=== PATIENT | male | born 1955 | race Caucasian/White ===

== ENCOUNTER 2019-10-17 22:53 | Emergency (ER) | payer MEDICARE ==
[~2019-10-17] VITALS: Ht 182.9 cm; Wt 109.1 kg
[~2019-10-17 22:53] MED LIST: APRESOLINE 25MG25 MG PO; ASPIRIN 81M81 MG/TA2 PO; ASPIRIN E.C. 8181 MG PO; CATAPRES 0.1MG0.1 MG PO; COREG 25MG25 MG/TAB PO; COREG12.5 MG PO; ISORDIL 20MG20 M1 PO; K-TAB20 PO; LASIX 40MG TABL40 MG PO; LASIX 80MG TABL80 MG PO; LIPITOR 40MG TA40 MG PO; MEVACOR 20M20 MG/TAB; MEVACOR 20M20 MG/TAB PO; NORCO 325 MG-51 TAB PO; NORVASC 5MG5 MG/TAB PO; PLAVIX 75MG TAB75 MG PO; PRINIVIL10 MG PO; ROXICODONE 55 MG/TAB PO; ZESTRIL 5MG5 MG PO; ZOLOFT 100MG100 MG PO; ZOLOFT 50MG50 MG PO; [UNRECOGNIZED DRUG - REMARK]
[2019-10-17 23:09] VITALS: TEMP 98.2
[2019-10-17 23:35] LABS: ALBUMIN 3.8 gm/dL (3.5-5.0); BILIRUBIN,TOTAL 0.5 mg/dL (0.0-1.0); CALCIUM 8.5 mg/dL (8.4-10.2); CREATININE, serum 6.38 (0.66-1.25); TOTAL PROTEIN 7.1 gm/dL (6.4-8.2)
[2019-10-18 00:01] LABS: BASO % 0.5 % (0.0-2.0); EOS # 0.2 (0.0-0.7); EOS % 3.4 % (0-4.0); GRAN # 4.6 (1.4-6.5); GRAN % 80.9 % (42.2-75.2); LYMPH # 0.3 (1.2-3.4); LYMPH % 4.6 % (20.0-51.0); MEAN CELL VOLUME 78 fl (80.0-100.0); MEAN CORPUSCULAR HGB CONC 32 g/dl (33.0-37.0); MEAN PLATELET VOLUME 11.5 fl (7.4-10.4); MONO # 0.6 (0.1-0.6); MONO % 9.9 % (1.7-9.3); PLATELET COUNT 186 K/mm3 (130-400); RED BLOOD COUNT 3.16 M/mm3 (4.20-5.60); REDCELL DISTRIBUTION WIDTH-CV 20.1 % (11.5-14.5)
[2019-10-18 00:02] LABS: HEMATOCRIT 24.7 % (42.0-52.0); HEMOGLOBIN 7.9 g/dl (13.5-18.0); MEAN CORPUSCULAR HEMOGLOBIN 25 pg (27.0-31.0)
[2019-10-18 00:05] LABS: POTASSIUM 6.7 mmol/L (3.4-5.0)
[2019-10-18 00:06] LABS: TROPONIN-I 0.065 ng/mL (0.000-0.035)
[2019-10-18 00:12] LABS: INR 1.1 (0.8-3.0); PROTHROMBIN TIME 12.8 SECONDS (9.7-12.8)
[2019-10-18 01:35] VITALS: BP 155/69; PULSE 60
== END 2019-10-18 01:35 | disposition short-term general hospital (02) ==
LOC: COL.ER 22:53
PROVIDERS: Emergency Medicine
DX: I13.0 Hypertensive heart and chronic kidney disease with heart failure and stage 1 through stage 4 chronic kidney disease, or unspecified chronic kidney disease (principal); I50.9 Heart failure, unspecified; N17.9 Acute kidney failure, unspecified; E87.5 Hyperkalemia; E78.5 Hyperlipidemia, unspecified; F17.210 Nicotine dependence, cigarettes, uncomplicated; Z95.9 Presence of cardiac and vascular implant and graft, unspecified; Z79.02 Long term (current) use of antithrombotics/antiplatelets; Z79.82 Long term (current) use of aspirin; N18.9 Chronic kidney disease, unspecified
CPT/HCPCS: J0610; J1815; J1940

== ENCOUNTER 2019-11-01 21:13 | Inpatient (IN) | payer MEDICARE ==
[~2019-11-01] VITALS: Ht 190.5 cm; Wt 72.0 kg
[2019-11-01 21:45] LABS: ARTERIAL BLD GAS O2 SATURATION 95.1 % (92-100); ARTERIAL BLD GAS TCO2 CT 29.3; ARTERIAL BLOOD GAS BASE EXCESS 4.2 (-2-2); ARTERIAL BLOOD GAS HCO3 28.1 meq/L (22-26); ARTERIAL BLOOD GAS PCO2 39.2 mmHg (35-45); ARTERIAL BLOOD GAS PO2 76.9 mmHg (80-100); ARTERIAL BLOOD GAS pH 7.47 (7.35-7.45)
[2019-11-01 21:55] LABS: BASO % 0.5 % (0.0-2.0); EOS # 0.3 (0.0-0.7); EOS % 3.7 % (0-4.0); GRAN % 81.4 % (42.2-75.2); LYMPH # 0.4 (1.2-3.4); LYMPH % 5.3 % (20.0-51.0); MEAN CELL VOLUME 77 fl (80.0-100.0); MEAN CORPUSCULAR HGB CONC 33 g/dl (33.0-37.0); MEAN PLATELET VOLUME 10.8 fl (7.4-10.4); MONO # 0.6 (0.1-0.6); MONO % 8.7 % (1.7-9.3); PLATELET COUNT 280 K/mm3 (130-400); RED BLOOD COUNT 2.88 M/mm3 (4.20-5.60); REDCELL DISTRIBUTION WIDTH-CV 22.3 % (11.5-14.5)
[2019-11-01 21:56] LABS: HEMOGLOBIN 7.3 g/dl (13.5-18.0); MEAN CORPUSCULAR HEMOGLOBIN 25 pg (27.0-31.0)
[2019-11-01 21:57] LABS: HEMATOCRIT 22.2 % (42.0-52.0)
[2019-11-01 22:00] LABS: INR 1.1 (0.8-3.0); PROTHROMBIN TIME 12.7 SECONDS (9.7-12.8)
[2019-11-01 22:03] LABS: PARTIAL THROMBOPLASTIN TIME 34.2 SECONDS (26.0-37.0)
[2019-11-01 22:05] LABS: ALBUMIN 3.7 gm/dL (3.5-5.0); BILIRUBIN,TOTAL 0.8 mg/dL (0.0-1.0); CALCIUM 8.5 mg/dL (8.4-10.2); CREATININE, serum 4.08 (0.66-1.25); POTASSIUM 3.7 mmol/L (3.4-5.0)
[2019-11-01 22:17] LABS: TROPONIN-I 0.112 ng/mL (0.000-0.035)
[2019-11-02] VITALS (12 sets, daily range): BP systolic 123–158; BP diastolic 85–100; PULSE 61–115; TEMP 97.6–98.7
[2019-11-02 02:07] LABS: PARTIAL THROMBOPLASTIN TIME 33.3 SECONDS (26.0-37.0)
--- NOTE | 2019-11-02 03:00 | NUR ---
PT ADMITTED TO 311 WITH DIAGNOSIS OF HYPOXIA. PT SOMEWHAT CONFUSED, POOR HISTORIAN. SEE 5 PAGE ASSESSMENT.
[2019-11-02] MEDS ORDERED: ALBUTEROL0.83 MG/ML IH (03:19)
[2019-11-02] MEDS ORDERED: CORRECTIVE LAXAT5 MG PO (03:20)
[2019-11-02] MEDS ORDERED: ANTACID500 M1 PO (03:21)
[2019-11-02] MEDS ORDERED: OS-CAL 500 + D1 TAB PO (03:22)
[2019-11-02] MEDS ORDERED: REFRESH TEARS 330 ML OU (03:24)
[2019-11-02] MEDS ORDERED: OMNICEF 300MG300 MG PO (03:25)
[2019-11-02] MEDS ORDERED: KLONOPIN WAFER0.5 MG PO (03:26)
[2019-11-02] MEDS ORDERED: FERRO-TIME325 MG PO (03:27)
[2019-11-02] MEDS ORDERED: FLAGYL500 MG PO (03:28)
[2019-11-02] MEDS ORDERED: NICODERM C21 MG/PATC TD (03:29)
[2019-11-02] MEDS ORDERED: PROTONIX 40MG T40 MG PO (03:30)
[2019-11-02] MEDS ORDERED: FLOMAX 0.40.4 MG/CAP PO (03:31)
[2019-11-02] MEDS ORDERED: LASIX 80MG TABL80 MG PO (03:36)
[2019-11-02] MEDS ORDERED: NORCO 325 MG-51 TAB PO (03:37)
[2019-11-02] MEDS ORDERED: LEVOXYL0.025 MG PO (03:38)
[2019-11-02 09:10] LABS: MEAN CELL VOLUME 79 fl (80.0-100.0); MEAN CORPUSCULAR HGB CONC 33 g/dl (33.0-37.0); MEAN PLATELET VOLUME 10.8 fl (7.4-10.4); PLATELET COUNT 269 K/mm3 (130-400); RED BLOOD COUNT 3.01 M/mm3 (4.20-5.60); REDCELL DISTRIBUTION WIDTH-CV 21.8 % (11.5-14.5)
[2019-11-02 09:17] LABS: CALCIUM 8.4 mg/dL (8.4-10.2); CREATININE, serum 3.92 (0.66-1.25); POTASSIUM 3.5 mmol/L (3.4-5.0)
[2019-11-02 09:18] LABS: HEMATOCRIT 23.8 % (42.0-52.0); HEMOGLOBIN 7.9 g/dl (13.5-18.0); MEAN CORPUSCULAR HEMOGLOBIN 26 pg (27.0-31.0)
[2019-11-02 09:29] LABS: BAND 7 % (0-10); BASOPHIL 1 % (0-2); EOSINOPHIL 3 % (0-4); LYMPHOCYTE 11 % (20.0-51.0); NEUTROPHILS 73 % (42.0-75.2); PLATELET ESTIMATE NORMAL (NORMAL); SCHISTOCYTES 2+
[2019-11-02 09:31] LABS: TROPONIN-I 0.32 ng/mL (0.000-0.035)
--- NOTE | 2019-11-02 09:38 | NUR ---
Assessment complete. Patient sitting up in bed, awake and disoriented at this time. Patient was only oriented to himself. Complains that he is hungry and would like food, I continue to remind him that he must wait to see the doctor before he can eat. Heparin drip is currently infusing, both IV sites are CD&I. No complaints of pain or discomfort. Weakness evidenet when patient stated he could not lean forward for my ascultation. Bed alarm is set, patient refused gown at this time. Call light is in reach. Will continue to monitor.
[2019-11-02 13:39] LABS: IRON,SERUM 66 ug/dL (35-150)
[2019-11-02 13:49] LABS: TOTAL IRON BINDING CAPACITY 248 ug/dL (261-462)
--- NOTE | 2019-11-02 15:56 | NUR ---
SW was informed by nurse to contact DPOA-HC to complete intake due to patient's cognition. DPOA- Sylvie [phone] contacted, this is also patient's sister. She stated she did not know that she was appointed the DPOA-HC and she thought it was the guardian. Sister states that she barely talks to her brother due to family conflict, but was appreciative to know the information about being the DPOA-HC. [facility] provided to contact guardian Jodi [phone] for information in regards to patient. SW call guardian, but could not reach. MOIZ will continue to follow.
--- NOTE | 2019-11-02 18:31 | NUR ---
Patient has done well today. Once he was able to eat he was happier. He is very forgetful and will often ask the same question multiple times. He is pleasant but continues to request to go home. Heparin drip continues to run at this time. IV sites are stable. No other needs. Call light is in reach. Bed alarm is set. PAtient is aware of the 24 urine collection but has yet to pee at this time. He is aware to call if her does.
[2019-11-02 18:59] LABS: COLLECTION METHOD CLEAN CATCH
[2019-11-02 19:06] LABS: PH 6 (5-8); SQUAMOUS EPITHELIAL None Seen /hpf; URINE APPEARANCE Clear; URINE BACTERIA None Seen /hpf; URINE BILIRUBIN Negative (NEGATIVE); URINE BLOOD 1+ (NEGATIVE); URINE COLOR Yellow; URINE GLUCOSE Negative (NEGATIVE); URINE KETONE Negative (NEGATIVE); URINE LEUKOCYTE ESTERASE Negative (NEGATIVE); URINE NITRATE Negative (NEGATIVE); URINE PROTEIN(semi-quant) 1+ (NEGATIVE); URINE RBC 0-2 /hpf; URINE UROBILINOGEN Negative (NEGATIVE)
--- NOTE | 2019-11-02 22:14 | NUR ---
Hep xa result was 0.19, increased heparin drip by 1.5 ml per protocol. drip is now running at 13.5 mL per hour. hep xa recheck ordered for 6 hours later.
[2019-11-03] VITALS (7 sets, daily range): BP systolic 117–158; BP diastolic 71–94; PULSE 84–105; TEMP 97.6–99.9
--- NOTE | 2019-11-03 00:20 | NUR ---
Pt reducated on purpose of nothing by mouth after midnight for V/Q scan tommorrow. pt educated on process of 24 hour urine collection and asked to call when he urinates.
--- NOTE | 2019-11-03 01:03 | NUR ---
Pt restless and unable to sleep. requested "a pill to help sleep". gave clonazepam prn per APR.
--- NOTE | 2019-11-03 01:57 | NUR ---
pt continues to be confused and forgetful. constantly reminding and educating pt on reason he cannot have anything to eat or drink. pt continues to be restless, will continue to monitor.
--- NOTE | 2019-11-03 02:28 | NUR ---
pt found standing at bedside with blood all over the floor and left forearm IV was out. pt stated he doesnt know what happened or where he was trying to go. restarted heparin drip in right wrist IV site. changed bed linens and cleaned blood from the floor, changed pt pants. this nurse told the patient to call if he needs to get up and to use the urinal if he needs to pee. Bed alarm is on, [facility]
[2019-11-03 04:20] LABS: BASO # 0.1 (0.0-0.2); BASO % 0.8 % (0.0-2.0); EOS # 0.3 (0.0-0.7); EOS % 4.4 % (0-4.0); GRAN # 4.8 (1.4-6.5); LYMPH # 0.7 (1.2-3.4); LYMPH % 10.9 % (20.0-51.0); MEAN CELL VOLUME 78 fl (80.0-100.0); MEAN CORPUSCULAR HGB CONC 33 g/dl (33.0-37.0); MEAN PLATELET VOLUME 10.5 fl (7.4-10.4); MONO # 0.8 (0.1-0.6); MONO % 11.4 % (1.7-9.3); PLATELET COUNT 285 K/mm3 (130-400); RED BLOOD COUNT 2.94 M/mm3 (4.20-5.60); REDCELL DISTRIBUTION WIDTH-CV 21.9 % (11.5-14.5)
[2019-11-03 04:25] LABS: HEMOGLOBIN 7.6 g/dl (13.5-18.0); MEAN CORPUSCULAR HEMOGLOBIN 26 pg (27.0-31.0)
[2019-11-03 04:33] LABS: CALCIUM 8.3 mg/dL (8.4-10.2); CREATININE, serum 4.12 (0.66-1.25); MAGNESIUM 1.8 mg/dL (1.6-2.3); POTASSIUM 3.4 mmol/L (3.4-5.0)
[2019-11-03 04:46] LABS: TROPONIN-I 0.424 ng/mL (0.000-0.035)
--- NOTE | 2019-11-03 06:08 | NUR ---
pt restless and awake throughout the night, continues to be confused and forgetful. continually educated pt on reason for nothing by mouth and 24 hour urine collection. this nurse told pt to call if he needs to get up. bed alarm is set, will continue to monitor.
--- NOTE | 2019-11-03 07:38 | NUR ---
pt returned to room from scan @ 0730. in bed, alarms on. call light within reach. wanting breakfast
--- NOTE | 2019-11-03 09:20 | NUR ---
Initial visit; Patient thanked Collective Bargaining Specialist for stopping though declined spiritual care.
--- NOTE | 2019-11-03 12:29 | NUR ---
Die Sinker Apprentice spoke with patient's DPOA, Jodi (ph#[phone]) who advised no one should be in contact with patient's sister, Sylvie as she and patient do not get along. Jodi reports she is DPOA and will email paperwork to SW. Jodi reports she has provided the paperwork to [facility] in the past and gave it to [facility] as patient was recently admitted there. Jodi states she is patient's care provider and that she provides care "pro ernie". Patient lives in [place] at [address] [place] [address] Manjarrez for primary care. Jodi picks up patient's medications from [facility] and ensures he takes them as prescribed. Jodi reports patient was recently at [facility] in [place] for two weeks and had Home Health set up at discharge. Jodi cannot remember which agency, but will follow up with SW once she figures out the name. Jodi reports patient normally gets up and around okay and that she is over at patient's apartment everyday anywhere from 3 to 16 hours. Jodi states she strongly feels patient will need home oxygen set up at discharge. Jodi states at this time, plan is for patient to return home. SW will continue to follow.
--- NOTE | 2019-11-03 13:56 | NUR ---
CHF education due. CHF education not completed due to patient's lack of comprehension.
--- NOTE | 2019-11-03 16:05 | NUR ---
Hospice Community Liaison received a phone call from Marleen at [facility] who advised they received a referral from [facility] but couldn't see patient has he presented to [facility] ED shortly after discharge. MOIZ followed up with Jodi who advised she left the original DPOA documents at [facility]. MOIZ contacted MOIZ Wilson at [facility] who confirmed patient has DPOA designating Jodi and will fax over a copy. MOIZ will continue to follow.
--- NOTE | 2019-11-03 19:22 | NUR ---
END OF SHIFT NOTE: AGREE WITH STUDENT EVAL OF PT. AOX3 BUT FORGETFUL AND FREQUENTLY DISORIENTED AN DPLEASANTLY CONFUSED. REPEATEDLY ASKS THE SAME QUESTIONS AFTER HAVING THINGS EXPLAINED TO HIM. DENIES PAIN ALL SHIFT. LCTA. HRRR. NO EDEMA. SCABS TO PAUL SHINS AND BRUISING THROUGHOUT AND PT PICKS. 24 HR URINE COLLECTION CONTINUOUS UNTIL 2300. REPORT GIVEN TO ALEXANDREA/JYOTSNA. HEP Xa TWO CONSEQUTIVE THERAPEUTIC VALUE THUS NEXT LAB DRAW SCHEDULED FOR 0500. RFA/W IV INTACT WITH NO ISSUES THIS SHIFT. PT CONTINUOUSLY REMOVES TELE FROM BODY. ALSO OCCASIONALLY REMOVES NASAL CANULA. ON 1L. WAS 88-91% ON RA.
--- NOTE | 2019-11-03 20:00 | NUR ---
Bedside report received, assumed care for metalizing supervisor. Assessment complete. A&Ox3 but forgetful. Denies pain/nausea/shortness of breath. VS remain stable. Heparin to right forearm IV @13.5ml/hr. Next hepxa due at 0500. Currently on O2@1L/NC. Tolerating diet. Voiding without difficulty. Fluid restriction being enforced. Denies current needs. Call light in reach. Will monitor.
--- NOTE | 2019-11-03 23:50 | NUR ---
Called requesting something else for sleep. Hospitalist notified and new orders for melatonin 6mg-given at this time. Ambulated in hallways approx 200 feet with stand by assist. Denies pain/nausea/shortness of breath. Heparin continues to infuse at 13.5mls/hr. Call light in reach/bed alarm on. Will monitor.
[2019-11-04 02:27] LABS: CREATININE, serum 4.12 (0.66-1.25); URINE CREATININE CLEARANCE 7.5 mL/min (97-137); URINE TOTAL VOLUME 925 mL
[2019-11-04 04:30] VITALS: BP 122/75; PULSE 79; TEMP 98.9
[2019-11-04 07:00] LABS: BASO % 0.7 % (0.0-2.0); EOS # 0.3 (0.0-0.7); EOS % 5.6 % (0-4.0); GRAN # 3.8 (1.4-6.5); GRAN % 68.5 % (42.2-75.2); LYMPH # 0.6 (1.2-3.4); LYMPH % 10.2 % (20.0-51.0); MEAN CELL VOLUME 79 fl (80.0-100.0); MEAN CORPUSCULAR HGB CONC 33 g/dl (33.0-37.0); MEAN PLATELET VOLUME 11.1 fl (7.4-10.4); MONO # 0.8 (0.1-0.6); MONO % 14.5 % (1.7-9.3); PLATELET COUNT 300 K/mm3 (130-400); RED BLOOD COUNT 2.77 M/mm3 (4.20-5.60); REDCELL DISTRIBUTION WIDTH-CV 22.6 % (11.5-14.5)
[2019-11-04 07:11] LABS: HEMATOCRIT 21.9 % (42.0-52.0); HEMOGLOBIN 7.2 g/dl (13.5-18.0); MEAN CORPUSCULAR HEMOGLOBIN 26 pg (27.0-31.0)
[2019-11-04 07:13] LABS: CALCIUM 8.1 mg/dL (8.4-10.2); CREATININE, serum 4.05 (0.66-1.25); MAGNESIUM 1.9 mg/dL (1.6-2.3); POTASSIUM 3.3 mmol/L (3.4-5.0)
[2019-11-04 07:16] VITALS: BP 135/88; PULSE 68; TEMP 98.1
--- NOTE | 2019-11-04 09:23 | NUR ---
Pt assessment complete. Pt is laying in bed upon entry, he is A/O x4. His breathing is even and unlabored on RA. Pt denies SOB. No pain at this time. Reported nausea earlier this am, but has resolved with PRN Zofran. Pt ate breakfast without issues. Pt continues to have loose stools, pericare and bed bath given. Pt repositioned. No needs at this time. Call light within reach.
[2019-11-04 11:41] VITALS: BP 122/78; PULSE 76; TEMP 98.1
--- NOTE | 2019-11-04 13:30 | NUR ---
Rn Midwife received [facility]PO[facility] document [facility]. SW placed document on patient's chart. Patient's DPOA is Jodi Gilmore. MOIZ consulted Jasmine, Financial Counselor as Jodi reported she recently applied for Medicaid for patient and was not sure the status. Jasmine provided SW with releases of information for patient to sign. MOIZ met with patient and explained purpose of releases. Patient was unsure what today's date is. SW asked patient what year it is and he states he does not know. SW asked patient where he was right now and patient states "a hospital I think, I'm not sure". SW asked patient who the current president is and he replied "Obama". MOIZ provided this update to Jasmine, Financial Counselor and SW will follow up on these releases with patient at a later time. MOIZ contacted Marleen at [facility] and left a message. MOIZ also faxed clinical updates. MOIZ collaborated with ADRYAN Flowers who advised patient to start dialysis tomorrow per Dr. Garduno. MOIZ contacted patient's DPOA-Jodi to provide update. MOIZ will continue to follow.
[2019-11-04 16:35] VITALS: BP 105/65; PULSE 81; TEMP 97.5
[2019-11-04 19:26] VITALS: BP 126/84; PULSE 74; TEMP 98
--- NOTE | 2019-11-04 19:40 | NUR ---
Pt had uneventful day. Did continue to have some confusion, asking where he was. Pt did shower today, do not feel that patient understands the dialysis catheter placement nor dialysis despite the explanations. Did not report any pain. Had a good appetite, frequently asking for meals. No needs at this time. Call light within reach, bed alarm in place.
--- NOTE | 2019-11-04 20:30 | NUR ---
Assessment complete. Lungs clear. Heart sounds normal. Bowels active x4. Pulses present throughout. Bilateral lower extremity edema +1. INT right wrist flushed without complications. Patient care given Jodi voiced concerns regarding patient being off antidepressants. Zoloft added to med rec. Also reports patient having anxiety and would like klonopin given. Jodi reports EMS took only copies of V patient summary and Jodi would like to have copies released back to her. Jodi will be back in in AM. Will pass on to next shift. Spoke with patient and did agree regarding anxiety and wanting klonopin. Will provide to patient and will follow up with hospitalist later regarding zoloft. Patient denied other needs at this time. Call [facility] in reach.
[2019-11-04] MEDS ORDERED: ZOLOFT 100MG100 MG PO (23:03)
--- NOTE | 2019-11-04 23:15 | NUR ---
Jodi called regarding follow up on patient medications. Updated regarding zoloft restarted for tomorrow and klonopin given to patient earlier in evening. Would also like phone call in AM once patient goes for dialysis cath. Will pass on.
[2019-11-04 23:47] VITALS: BP 121/79; PULSE 73; TEMP 97.9
[2019-11-05] VITALS (18 sets, daily range): BP systolic 100–141; BP diastolic 63–92; PULSE 64–83; TEMP 97.4–98.4
--- NOTE | 2019-11-05 00:21 | NUR ---
Resting in bed. Denies needs. Call light in reach.
--- NOTE | 2019-11-05 05:27 | NUR ---
Patient had uneventful night. NPO since 0000. Denies needs this Am. Call light in reach.
--- NOTE | 2019-11-05 07:01 | NUR ---
Report given to JYOTSNA Ly
[2019-11-05 07:26] LABS: BASO % 0.8 % (0.0-2.0); EOS # 0.3 (0.0-0.7); EOS % 5.5 % (0-4.0); GRAN # 3.7 (1.4-6.5); GRAN % 70.3 % (42.2-75.2); LYMPH # 0.4 (1.2-3.4); LYMPH % 7.9 % (20.0-51.0); MEAN CELL VOLUME 79 fl (80.0-100.0); MEAN CORPUSCULAR HGB CONC 33 g/dl (33.0-37.0); MEAN PLATELET VOLUME 11.2 fl (7.4-10.4); MONO # 0.8 (0.1-0.6); MONO % 14.9 % (1.7-9.3); PLATELET COUNT 346 K/mm3 (130-400); RED BLOOD COUNT 2.87 M/mm3 (4.20-5.60); REDCELL DISTRIBUTION WIDTH-CV 23.5 % (11.5-14.5)
[2019-11-05 07:28] LABS: HEMATOCRIT 22.7 % (42.0-52.0); HEMOGLOBIN 7.4 g/dl (13.5-18.0); MEAN CORPUSCULAR HEMOGLOBIN 26 pg (27.0-31.0)
[2019-11-05 07:32] LABS: CALCIUM 8.1 mg/dL (8.4-10.2); CREATININE, serum 4.41 (0.66-1.25); POTASSIUM 3.5 mmol/L (3.4-5.0)
--- NOTE | 2019-11-05 08:22 | NUR ---
SEE SADIQ FOR ALL MEDICATION ADMINISTRATION TIMES AND INTRA AND POST SEDATION ASSESSMENT
--- NOTE | 2019-11-05 09:57 | NUR ---
Pt assessment complete. 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 Site to R chest CDI. Pt reporting back pain 08/28, no PRN's at this time. Pt eating breakfast without issues. No N/V. Fall precautions in place. Will continue to monitor.
--- NOTE | 2019-11-05 19:35 | NUR ---
First unit of blood started at this time. S/Sx's discussed with patient. Protocol procedure followed. This nurse will remain at bedside for first 15 minutes of transfusion.
--- NOTE | 2019-11-05 21:00 | NUR ---
Patient assessed at this time. Alert and oriented, with confusion and forgetfullness. Denies having pain and discomfort at this time. Peripheral IV to right forearm with blood running at this time. Site is without redness, warmth, swelling, and pain. HD catheter to right chest area. Dresings to area are CDI. Denies pain and discomfort to area. Denies having SOB and dyspnea. LS CTA. Respirations even and unlabored. HRR. Capillary refill less than 3 seconds. Non-tenting skin turgor. BSAx4. Abdomen soft and non-tender. No edema. Abraisions to bilateral shins, open to air. Given PRN Klonopin as requested. Voices no further questions, needs, or concerns at this time. Resting in bed with call light within reach.
[2019-11-05 22:11] LABS: HEPATITIS B SURFACE ANTIBODY <2.0 (()); HEPATITIS C VIRUS ANTIBODY Negative (Negative)
--- NOTE | 2019-11-05 22:30 | NUR ---
Patient's first unit of blood finshed at 2224. Given PRN APAP at this time for headache. Denies having any other questions, needs, or concerns at this time. Resting in bed with call light within reach.
[2019-11-05 23:05] LABS: HEPATITIS B SURFACE ANTIGEN Negative (Negative)
--- NOTE | 2019-11-05 23:30 | NUR ---
Patient's second unit of blood started at 2311. This nurse stayed with patient for the first 15 minutes per policy. Tolerating well.
[2019-11-06] VITALS (7 sets, daily range): BP systolic 109–139; BP diastolic 61–83; PULSE 69–78; TEMP 97.4–98.6
--- NOTE | 2019-11-06 01:44 | NUR ---
Patient completed 2nd unit of PRBCs at 0135. Tolerated well.
--- NOTE | 2019-11-06 05:06 | NUR ---
Patient has been awake most of this shift. Received 2 units of blood this shift per orders. Had received scheduled melatonin and PRN Klonopin. Patient needed reminders throughout the night regarding fluid restriction, and would get upset that staff was not giving more fluids. Continue to encourage compliance with fluid restriction. Had received PRN APAP for headache earlier this shift, denies pain at this time. Voices no questions, needs, or concerns at this time. Resting in bed with call light within reach.
--- NOTE | 2019-11-06 06:55 | NUR ---
appears to be sleeping, bedside shift report received from JYOTSNA Ackerman
[2019-11-06 07:02] LABS: BASO # 0.1 (0.0-0.2); BASO % 1.1 % (0.0-2.0); EOS # 0.3 (0.0-0.7); EOS % 5.2 % (0-4.0); GRAN # 3.9 (1.4-6.5); GRAN % 71.2 % (42.2-75.2); LYMPH # 0.5 (1.2-3.4); LYMPH % 8.3 % (20.0-51.0); MEAN CELL VOLUME 83 fl (80.0-100.0); MEAN CORPUSCULAR HGB CONC 32 g/dl (33.0-37.0); MEAN PLATELET VOLUME 10.8 fl (7.4-10.4); MONO # 0.7 (0.1-0.6); MONO % 13.5 % (1.7-9.3); PLATELET COUNT 362 K/mm3 (130-400); RED BLOOD COUNT 3.52 M/mm3 (4.20-5.60); REDCELL DISTRIBUTION WIDTH-CV 22.3 % (11.5-14.5)
[2019-11-06 07:08] LABS: HEMATOCRIT 29.1 % (42.0-52.0); HEMOGLOBIN 9.3 g/dl (13.5-18.0); MEAN CORPUSCULAR HEMOGLOBIN 26 pg (27.0-31.0)
[2019-11-06 07:19] LABS: ALBUMIN 3.7 gm/dL (3.5-5.0); CALCIUM 8.4 mg/dL (8.4-10.2); CREATININE, serum 4.1 (0.66-1.25); PHOSPHOROUS 5.2 mg/dL (2.5-4.5); POTASSIUM 3.8 mmol/L (3.4-5.0)
--- NOTE | 2019-11-06 08:30 | NUR ---
sitting up on side of bed eating breakfast, he is forgetful and needs to be reminded of his 1500ml fluid restriction, provided 120mkl milk per his request
--- NOTE | 2019-11-06 10:45 | NUR ---
ressting in bed, full assessment completed, see intervention for further info, has red abrasions to bilateral shins,
--- NOTE | 2019-11-06 11:39 | NUR ---
ambulating in mckeon with CONVEYOR TENDER [employer]CRET[employer]ING [employer]ANT
--- NOTE | 2019-11-06 12:24 | NUR ---
had lunch and tolerate wells, assisted into WC and to dialysis
--- NOTE | 2019-11-06 13:34 | NUR ---
Primary nurse was assisted with [id number] patient care by [facility] student Bailey Cedeno and [facility] [employer] instructor Mica Rhodes RN-.
--- NOTE | 2019-11-06 13:44 | NUR ---
remains in dialysis
--- NOTE | 2019-11-06 15:00 | NUR ---
returned from dialysis per WC, sitting on side of bed, denies needs
--- NOTE | 2019-11-06 16:17 | NUR ---
Agricultural Education Professor faxed clinical updates to [facility]. Patient has walked 400 ft with therapy. SW will continue to follow.
--- NOTE | 2019-11-06 17:45 | NUR ---
appears to be sleeping, awakened for meds and is cooperative,
--- NOTE | 2019-11-06 18:59 | NUR ---
bedside shift report given to JYOTSNA Ackerman
--- NOTE | 2019-11-06 19:45 | NUR ---
Patient assessed at this time. Alert and oriented to self only. Disoriented to time, place, and situation. Reminders given, but very forgetful. Denies having pain and discomfort at this time. Peripheral INT to right forearm flushed. Site is without redness, warmth, swelling, and pain. HD catheter to right chest. Dressing CDI. Patient to have fistula placed tomorrow. Reminded that he will be NPO after midnight. Will putt all fluids at that time from room. Denies SOB and dyspnea. LS CTA. Respirations even and unlabored. HRR. Capillary refill less than 3 seconds. Non-tenting skin turgor. BSAx4. Abdomen soft and non-tender. Abrasions to bilateral shins. Resting in bed with call light within reach. High fall risk precautions in place.
--- NOTE | 2019-11-06 22:00 | NUR ---
Patient keeps asking staff if he can go walk to his car. Reminded patient that he is at the hospital and he can not leave the floor. Upset with staff and keeps asking to leave. Confusion continues, patient does not understand why he is at the hospital and what surgery is planned for tomorrow. Staff gave patient some space. Patient sitting in bed with his clothes on. Bed alarm is on and staff intervene when getting up.
--- NOTE | 2019-11-06 23:39 | NUR ---
Resting in bed with eyes closed at this time. No longer yelling at staff to leave facility.
[2019-11-07 00:34] VITALS: BP 137/60; PULSE 72; TEMP 97.8
[2019-11-07 04:36] VITALS: BP 132/78; PULSE 69; TEMP 97.9
--- NOTE | 2019-11-07 05:10 | NUR ---
Patient has needed reminders multiple times during the night regarding being NPO after midnight for procedure today. Patient has gotten upset with staff and stated that he was going to leave, but stayed in room. Bed alarm is on, as patient is very quick and does try to wander into hallway.
[2019-11-07 07:39] LABS: BASO # 0.1 (0.0-0.2); EOS # 0.3 (0.0-0.7); EOS % 5.8 % (0-4.0); GRAN # 3.6 (1.4-6.5); GRAN % 69.5 % (42.2-75.2); LYMPH # 0.4 (1.2-3.4); LYMPH % 7.8 % (20.0-51.0); MEAN CELL VOLUME 83 fl (80.0-100.0); MEAN CORPUSCULAR HGB CONC 33 g/dl (33.0-37.0); MEAN PLATELET VOLUME 10.8 fl (7.4-10.4); MONO # 0.8 (0.1-0.6); MONO % 15.3 % (1.7-9.3); PLATELET COUNT 328 K/mm3 (130-400); RED BLOOD COUNT 3.41 M/mm3 (4.20-5.60); REDCELL DISTRIBUTION WIDTH-CV 22.5 % (11.5-14.5)
[2019-11-07 07:45] LABS: HEMATOCRIT 28.2 % (42.0-52.0); HEMOGLOBIN 9.2 g/dl (13.5-18.0); MEAN CORPUSCULAR HEMOGLOBIN 27 pg (27.0-31.0)
[2019-11-07 07:49] LABS: ALBUMIN 3.3 gm/dL (3.5-5.0); CALCIUM 8.3 mg/dL (8.4-10.2); CREATININE, serum 3.14 (0.66-1.25); PHOSPHOROUS 4.6 mg/dL (2.5-4.5)
[2019-11-07 08:28] VITALS: BP 129/76; PULSE 65; TEMP 97.8
--- NOTE | 2019-11-07 10:11 | NUR ---
Pt sleeping upon entry, no C/O pain at this time, shift assessments complete, left Pt call light in reach, bed in lowest position.
--- NOTE | 2019-11-07 13:48 | NUR ---
Primary nurse was assisted with [id number] patient care by [facility] student Bailey Cedeno and [facility] instructor Mica Rhodes RN-.
[2019-11-07 17:20] VITALS: BP 119/67; PULSE 73; TEMP 97.7
--- NOTE | 2019-11-07 19:05 | NUR ---
Pt resting in the room, returned from OR this afternoon after fistula placement, Pt remains oriented to self only, VS have remained stable fater returnin from the OR.
[2019-11-07 19:40] VITALS: BP 120/75; PULSE 71; TEMP 97.9
--- NOTE | 2019-11-07 20:00 | NUR ---
Received report from JYOTSNA Steen. Alert to self and place, unable to state current date and situation. Denies any pain or discomfort at this time. Scheduled meds given. Rt chest HD cath intact w/o complications. Fistula to LFA w/o complications with +bruit and thrill. INT to RFA intact, flushed, dressing CDI. No needs or concerns at this time. Call light within reach.
[2019-11-07 23:12] VITALS: BP 128/70; PULSE 72; TEMP 98.7
[2019-11-08 03:15] VITALS: BP 132/80; PULSE 64; TEMP 98
--- NOTE | 2019-11-08 05:59 | NUR ---
Pt requested snacks throughout the night. No complaints made. Meds administered. call light within reach.
--- NOTE | 2019-11-08 07:00 | NUR ---
Report received from JYOTSNA Gambino. Pt in bed sitting, has been up at door and in hallway this am. Denies needs, will continue to monitor.
--- NOTE | 2019-11-08 07:26 | NUR ---
report given to JYOTSNA Jeffrey.
[2019-11-08 08:37] LABS: BASO # 0.1 (0.0-0.2); BASO % 1.1 % (0.0-2.0); EOS # 0.3 (0.0-0.7); EOS % 5.5 % (0-4.0); GRAN # 4.5 (1.4-6.5); GRAN % 73.1 % (42.2-75.2); LYMPH # 0.4 (1.2-3.4); LYMPH % 6.8 % (20.0-51.0); MEAN CELL VOLUME 83 fl (80.0-100.0); MEAN CORPUSCULAR HGB CONC 33 g/dl (33.0-37.0); MEAN PLATELET VOLUME 11.1 fl (7.4-10.4); MONO # 0.8 (0.1-0.6); MONO % 13.2 % (1.7-9.3); PLATELET COUNT 378 K/mm3 (130-400); RED BLOOD COUNT 3.44 M/mm3 (4.20-5.60); REDCELL DISTRIBUTION WIDTH-CV 23.3 % (11.5-14.5)
[2019-11-08 08:42] LABS: HEMATOCRIT 28.7 % (42.0-52.0); HEMOGLOBIN 9.4 g/dl (13.5-18.0); MEAN CORPUSCULAR HEMOGLOBIN 27 pg (27.0-31.0)
--- NOTE | 2019-11-08 08:45 | NUR ---
PT WALKED APPROX 600 FT WITH PT. SPO2 96%
[2019-11-08 08:51] LABS: CALCIUM 8.3 mg/dL (8.4-10.2); CREATININE, serum 3.5 (0.66-1.25)
[2019-11-08 09:46] VITALS: BP 109/63; PULSE 66; TEMP 98.1
--- NOTE | 2019-11-08 10:00 | NUR ---
Pt resting in bed on side, sleepy this am, discussed plan for dialysis after lunch today. Pt agreeable to plan, wants to discharge this evening as it is his birthday, hospitalist notified and will discharge most likely, denies pain. Talked to [facility] Home health nurse Arley regarding pt plan of care. IV to RFA. LFA fistula is well approximated with no dressing in place, bruit and thrill present. HD catheter to RU. Shins have abrasions and scabs and R lower eyelid has scab on it. Pt has requested frequent food and drink, provided per request but trying to maintain fluid restriction. Will continue to monitor.
--- NOTE | 2019-11-08 10:15 | NUR ---
MOIZ update: MOIZ faxed updates for Home health to [phone]. Possible DC today, [facility] reports that they could admit client today, [facility]
[2019-11-08 11:45] VITALS: BP 114/65; PULSE 63; TEMP 98.1
[2019-11-08] MEDS ORDERED: NORVASC 10MG10 MG PO (12:58)
[2019-11-08] MEDS ORDERED: COREG 6.256.25 MG/TA PO (12:58)
--- NOTE | 2019-11-08 18:14 | NUR ---
Pt mona called, next of kin listed is Jodi, when calliing her she states that she needs to figure out some discharge options for him as he is partially evicted as of yesterday and she has nowhere for him to go. Called Leah hospitalsist and Dottie social media editor and per hospitalist will cancel the discharge and "tackle this tomorrow". Calling Jodi now and relaying this information.
--- NOTE | 2019-11-08 18:29 | NUR ---
PT updated with plan, he is saddened by it and states that he was really wanting to leave today. brought him a pepsi as a condolence for spending his birthday stuck in the hospital. Will give bedside shift report to nightshift nurse who will resume care.
[2019-11-08 19:38] VITALS: BP 136/92; PULSE 85; TEMP 98.7
--- NOTE | 2019-11-08 20:00 | NUR ---
Received report from JYOTSNA Jeffrey. Pt's next of kin, Jodi, currently visiting. Aware of plans of DC tmrw. [place] meds adminsitered with prn klonazepam and pain meds as requested by pt. c/o neck pain to stiches of HD cath site and fistual site to LFA, without redness or complications. Pt states pain with movement. INT to RFA intact, flushed. Pt occasionally confused and is unaware of place and situation, reoriented pt and cooperative. Snack provided as requested. Call light within reach.
[2019-11-08 23:58] VITALS: BP 114/67; PULSE 73; TEMP 98
[2019-11-09 03:47] VITALS: BP 126/77; PULSE 64; TEMP 98.3
--- NOTE | 2019-11-09 05:39 | NUR ---
Pt came to nurses station few times during the confused as to where he was and why he was here at the hospital. Reoriented pt to place and his situation. PT is pleasant, cooperative, and easily redirected. Snack provided as requested. Meds administered. Call light within reach.
--- NOTE | 2019-11-09 07:05 | NUR ---
Report given to JYOTSNA Baca.
[2019-11-09 07:15] VITALS: BP 129/86; PULSE 72; TEMP 97.5
--- NOTE | 2019-11-09 07:49 | NUR ---
BEDSIDE SHIFT REPORT RECEIVED. PT LYING IN BED. EASILY AROUSED. DOES NOT KNOW WHERE HE IS OR WHY HE IS HERE. PLEASANTLY CONFUSED.
--- NOTE | 2019-11-09 09:15 | NUR ---
MOIZ called DPOA Jodi jayden [phone] at 09:15 a.m. today. DPOA reports that she is picking up patient today. She denies that there is an issue with the home and using Home health care at the address listed [id number]. DPOA reports that she was going to pick client up last night but was unable to and told to wait until today. Educated DPOA of [facility] still coming out to support in home health care. MOIZ will make contact with [facility] to facilitatie services.
--- NOTE | 2019-11-09 09:51 | NUR ---
MORNING MEDS GIVEN. PT STEADY INDEPENDENT AMBULATION. REPORTS MILD GENERALIZED PAIN NOT REQUIRING MEDS AT THIS TIME. REPORTS CIGARETTE CRAVING. EDUCATED ON NICOTINE PATCH TO LT ARM. HOPING TO GO HOME TODAY, REPORTS NOT BEING AWARE OF HOME ISSUES HE OWNS HIS HOUSE. FORGETFUL. ORIENTED TO PERS/PLACE ONLY NOT TIME. FISTULA TO LT WRIST INTACT WITH THRILL AND BRUIT. 1_ PAUL LE EDEMA. IV TO RT WRIST FLUSHES. SCABS TO PAUL SHINS PEELING, NO DRIANAGE NOTED
[2019-11-09] MEDS ORDERED: TOPROL XL 50MG50 MG PO (09:59)
[2019-11-09 11:23] VITALS: BP 128/82; PULSE 64; TEMP 97.7
--- NOTE | 2019-11-09 13:16 | NUR ---
DISCHARGE PAPERWORK COMPLETE. AWAITING FOR FRANCO TO COME IN TO REVIEW INSTRUCTIONS TOGETHER PT IS VERY FORGETFUL. FRANCO CALLED MULTIPLE TIMES BUT LINE IS BUSY. WILL RE-ASESS
[2019-11-09] MEDS ORDERED: COREG 3.123.125 MG/T PO (15:08)
[2019-11-09] MEDS ORDERED: NORVASC 10MG10 MG PO (15:13)
--- NOTE | 2019-11-09 15:14 | NUR ---
DISCHARGE MED LIST REVIEWED WITH DR LAUREANO AND COMFIRMED FOR PT TO DC WITH INCREASED DOSE OF 10MG AMLODIPINE @ HS AND COREG 6.25 BID. SCRIPTS GIVEN TO PT AND FAMILY MEMBER. INSTRUCTIONS FOR DIALYSIS, FISTULA MATURATION AND CATHETER CARE ALSO REVIEWED. DR LAUREANO ALSO EDUCATED PT AND RENZO GAMEZ.
--- NOTE | 2019-11-09 16:26 | NUR ---
PT DISCHARGED ACCOMPANIED BY RENZO GAMEZ @ 1600. ALERT AND ORIENTED TO PERSON AND/OR PLACE. DSICHARGE MEDICATIONS REVIEWED WITH BOTH. AMBULATED THROUGH ER. RE-EDUCATED ON FISTULA SITE AND DIALYSIS CATH SITES. VERBALIZED UNDERSTANDING. FRANCO STATES PATIENT WILL RESIDE WITH HER AND HER BOYFRIEND FOR THE TIME BEING. FRANCO STATES SHE IS NOT RELATED TO PT BUT TAKES CARE OF HIS DAILY NEEDS. SHE STATES THE LAUNDERETTE ATTENDANT AT [facility] ISSUED HER A TRESSPASSING ORDER BECAUSE "SHE DOES NOT LIKE MY SKIN COLOR" THUS WILL NOT BE ABLE TO TAKE PT TO HIS PLACE FOR NOW. PT ACCEPTING TO LIVING AT [facility] FOR NOW.
== END 2019-11-09 16:00 | disposition home health service (06) | DRG 264 ==
LOC: COL.ER 21:13 → MEDICAL 23:32
PROVIDERS: Emergency Medicine; Internal Medicine Nephrology; Nurse Practitioner; Physician Assistant; Surgery; ADMIT Student in an Organized Health Care Education/Training Program
PROC: 031C0ZF Bypass Left Radial Artery to Lower Arm Vein, Open Approach (ICD-10-PCS; principal; 2019-11-07 12:30)
PROC: 5A1D70Z Performance of Urinary Filtration, Intermittent, Less than 6 Hours Per Day (ICD-10-PCS; 2019-11-08)
DX: I21.4 Non-ST elevation (NSTEMI) myocardial infarction (principal); I50.43 Acute on chronic combined systolic (congestive) and diastolic (congestive) heart failure; J69.0 Pneumonitis due to inhalation of food and vomit; N18.6 End stage renal disease; J96.21 Acute and chronic respiratory failure with hypoxia; I13.0 Hypertensive heart and chronic kidney disease with heart failure and stage 1 through stage 4 chronic kidney disease, or unspecified chronic kidney disease; E44.1 Mild protein-calorie malnutrition; E87.1 Hypo-osmolality and hyponatremia; I42.9 Cardiomyopathy, unspecified; I27.20 Pulmonary hypertension, unspecified; I73.9 Peripheral vascular disease, unspecified; D53.9 Nutritional anemia, unspecified; E87.6 Hypokalemia; R30.0 Dysuria; E03.9 Hypothyroidism, unspecified; E78.5 Hyperlipidemia, unspecified; F41.9 Anxiety disorder, unspecified; I25.118 Atherosclerotic heart disease of native coronary artery with other forms of angina pectoris; K21.9 Gastro-esophageal reflux disease without esophagitis; N40.0 Benign prostatic hyperplasia without lower urinary tract symptoms; D63.1 Anemia in chronic kidney disease; F17.210 Nicotine dependence, cigarettes, uncomplicated; Z91.14 Patient's other noncompliance with medication regimen; Z91.11 Patient's noncompliance with dietary regimen; Z68.21 Body mass index [BMI] 21.0-21.9, adult
CPT/HCPCS: OP; 99223-AI; 99231-AI; 99232-AI; 99233-AI; 99239; A9540; A9567; J0330; J1200; J1644; J1940; J2250; J2405; J2704; J2916; J3010; J7030; P9016; Q5105

== ENCOUNTER 2020-04-29 20:51 | Emergency (ER) | payer MEDICARE ==
[~2020-04-29] VITALS: Ht 185.4 cm; Wt 79.5 kg
[~2020-04-29 20:51] MED LIST changes: +ALBUTEROL0.83 MG/ML IH; +ANTACID500 M1 PO; +CALTRATE 600 +1 TAB PO; +COREG 3.123.125 MG/T PO; +COREG 6.256.25 MG/TA PO; +CORRECTIVE LAXAT5 MG PO; +FERRO-TIME325 MG PO; +FLAGYL500 MG PO; +FLOMAX 0.40.4 MG/CAP PO; +IPRATROPIUM BROM3 M1 IH; +KAPSPARGO SPRIN50 MG PO; +KLONOPIN WAFER0.5 MG PO; +LEVOXYL0.025 MG PO; +NICODERM C21 MG/PATC TD; +NORVASC 10MG10 MG PO; +OMNICEF 300MG300 MG PO; +OS-CAL 500 + D1 TAB PO; +PREDNISONE20 MG PO; +PROTONIX 40MG T40 MG PO; +REFRESH TEARS 330 ML OU; +TOPROL XL 50MG50 MG PO; +WELLBUTRIN SR100 M1 PO
[2020-04-29 21:02] VITALS: TEMP 98.2
[2020-04-29 21:59] LABS: BASO # 0.1 (0.0-0.2); BASO % 0.8 % (0.0-2.0); EOS # 0.3 (0.0-0.7); EOS % 4.4 % (0-4.0); GRAN # 5.1 (1.4-6.5); GRAN % 80.4 % (42.2-75.2); HEMOGLOBIN 10.1 g/dl (13.5-18.0); LYMPH # 0.3 (1.2-3.4); LYMPH % 4.3 % (20.0-51.0); MEAN CELL VOLUME 91 fl (80.0-100.0); MEAN CORPUSCULAR HEMOGLOBIN 30 pg (27.0-31.0); MEAN CORPUSCULAR HGB CONC 33 g/dl (33.0-37.0); MEAN PLATELET VOLUME 10.5 fl (7.4-10.4); MONO # 0.6 (0.1-0.6); MONO % 9.8 % (1.7-9.3); PLATELET COUNT 173 K/mm3 (130-400); REDCELL DISTRIBUTION WIDTH-CV 19.6 % (11.5-14.5)
[2020-04-29] MEDS ORDERED: APRESOLINE 25MG25 MG PO (21:59)
[2020-04-29] MEDS ORDERED: FEROSUL (22:03)
[2020-04-29] MEDS ORDERED: NORCO 325 MG-51 TAB PO (22:04)
[2020-04-29] MEDS ORDERED: KLONOPIN 1MG1 MG PO (22:04)
[2020-04-29 22:07] LABS: INR 1.2 (0.8-3.0); PROTHROMBIN TIME 13.9 SECONDS (9.7-12.8)
[2020-04-29 22:10] LABS: ALBUMIN 3.7 gm/dL (3.5-5.0); BILIRUBIN,TOTAL 0.7 mg/dL (0.0-1.0); CALCIUM 8.6 mg/dL (8.4-10.2); CREATININE, serum 2.55 (0.66-1.25); POTASSIUM 3.9 mmol/L (3.4-5.0)
[2020-04-29 22:23] LABS: TROPONIN-I 0.059 ng/mL (0.000-0.035)
[2020-04-30 03:15] VITALS: BP 126/88; PULSE 93
== END 2020-04-30 03:15 | disposition home or self-care (01) ==
LOC: COL.ER 20:51
PROVIDERS: Emergency Medicine
DX: J44.9 Chronic obstructive pulmonary disease, unspecified (principal); I13.2 Hypertensive heart and chronic kidney disease with heart failure and with stage 5 chronic kidney disease, or end stage renal disease; I25.10 Atherosclerotic heart disease of native coronary artery without angina pectoris; G93.40 Encephalopathy, unspecified; N18.6 End stage renal disease; F17.210 Nicotine dependence, cigarettes, uncomplicated; Z99.2 Dependence on renal dialysis; Z79.02 Long term (current) use of antithrombotics/antiplatelets; Z79.82 Long term (current) use of aspirin

== ENCOUNTER 2020-08-24 15:13 | Observation (INO) | payer MEDICARE, MEDICAID ==
[~2020-08-24] VITALS: Ht 190.5 cm; Wt 74.4 kg
[~2020-08-24 15:13] MED LIST changes: +FEROSUL; +KLONOPIN 1MG1 MG PO
[2020-08-24 15:47] LABS: BASO % 0.7 % (0.0-2.0); EOS # 0.2 (0.0-0.7); EOS % 2.6 % (0-4.0); GRAN # 5.1 (1.4-6.5); GRAN % 83.5 % (42.2-75.2); HEMOGLOBIN 10.2 g/dl (13.5-18.0); LYMPH # 0.3 (1.2-3.4); LYMPH % 5.6 % (20.0-51.0); MEAN CELL VOLUME 93 fl (80.0-100.0); MEAN CORPUSCULAR HEMOGLOBIN 30 pg (27.0-31.0); MEAN CORPUSCULAR HGB CONC 33 g/dl (33.0-37.0); MEAN PLATELET VOLUME 11.2 fl (7.4-10.4); MONO # 0.5 (0.1-0.6); MONO % 7.4 % (1.7-9.3); PLATELET COUNT 159 K/mm3 (130-400); RED BLOOD COUNT 3.35 M/mm3 (4.20-5.60); REDCELL DISTRIBUTION WIDTH-CV 17.2 % (11.5-14.5)
[2020-08-24 15:52] LABS: HEMATOCRIT 31.1 % (42.0-52.0)
[2020-08-24 15:56] LABS: INR 1.2 (0.8-3.0); PROTHROMBIN TIME 13.7 SECONDS (9.7-12.8)
[2020-08-24 15:59] LABS: ALBUMIN 3.8 gm/dL (3.5-5.0); BILIRUBIN,TOTAL 1.2 mg/dL (0.0-1.0); CALCIUM 8.9 mg/dL (8.4-10.2); CREATININE, serum 5.09 (0.66-1.25); POTASSIUM 3.8 mmol/L (3.4-5.0); TOTAL PROTEIN 7.1 gm/dL (6.4-8.2)
[2020-08-24 16:11] LABS: TROPONIN-I 0.093 ng/mL (0.000-0.035)
[2020-08-24 22:17] VITALS: BP 135/88; PULSE 80; TEMP 98.2
--- NOTE | 2020-08-24 23:35 | NUR ---
Pt came for confusion and seems a little confused. He was complaining about right knee pain but does not recall if he had fallen. Vss. will continue to monitor.
[2020-08-25 04:00] VITALS: BP 138/98; PULSE 86; TEMP 97.4
--- NOTE | 2020-08-25 06:45 | NUR ---
awake and resting in bed, bedside shift report received from JYOTSNA Hood
--- NOTE | 2020-08-25 07:00 | NUR ---
is alert and oriented to place and self, assisted him with ordering breakfast
[2020-08-25 07:43] VITALS: BP 149/69; PULSE 87; TEMP 97.7
[2020-08-25] MEDS ORDERED: ZOLOFT 100MG100 MG PO (07:43)
[2020-08-25] MEDS ORDERED: IPRATROPIUM BROM3 M1 IH (07:43)
--- NOTE | 2020-08-25 08:30 | NUR ---
up and ambulated to bathroom earlier with assistance of BOTTOM POLISHER, then had breakfast and tolerated well, transferred per WC to dialysis, DOMI Vega here and explained to her the guardian requesting to be called, verbalizes understanding
[2020-08-25 09:18] LABS: BASO # 0.1 (0.0-0.2); BASO % 0.8 % (0.0-2.0); EOS # 0.2 (0.0-0.7); EOS % 3.7 % (0-4.0); GRAN # 4.9 (1.4-6.5); HEMOGLOBIN 10.3 g/dl (13.5-18.0); LYMPH # 0.4 (1.2-3.4); LYMPH % 5.9 % (20.0-51.0); MEAN CELL VOLUME 95 fl (80.0-100.0); MEAN CORPUSCULAR HEMOGLOBIN 30 pg (27.0-31.0); MEAN CORPUSCULAR HGB CONC 32 g/dl (33.0-37.0); MEAN PLATELET VOLUME 11.5 fl (7.4-10.4); MONO # 0.4 (0.1-0.6); MONO % 7.3 % (1.7-9.3); PLATELET COUNT 156 K/mm3 (130-400); RED BLOOD COUNT 3.39 M/mm3 (4.20-5.60); REDCELL DISTRIBUTION WIDTH-CV 17.1 % (11.5-14.5)
[2020-08-25 09:23] LABS: HEMATOCRIT 32.1 % (42.0-52.0)
[2020-08-25 09:27] LABS: ALBUMIN 3.8 gm/dL (3.5-5.0); CALCIUM 8.5 mg/dL (8.4-10.2); CREATININE, serum 5.26 (0.66-1.25); PHOSPHOROUS 6.3 mg/dL (2.5-4.5); POTASSIUM 4.4 mmol/L (3.4-5.0)
--- NOTE | 2020-08-25 10:12 | NUR ---
physical therapy in to work with patient, ambulating out in mckeon and will go and see his who is also in the hospital
--- NOTE | 2020-08-25 10:26 | NUR ---
remains in dialysis, resting in dialysis chair and denies needs
--- NOTE | 2020-08-25 10:52 | NUR ---
remains in dialysis, full assessment completed, see interventions for further info, c/o some right knee and hip pain with movement, has 2cm scabbed area to right elbow, when asked him if he fell he just says he must have, is oriented to self and place but is forgetful and doesn't know why he is on dialysis, explained this to him
--- NOTE | 2020-08-25 10:59 | NUR ---
left message for Dr King regarding consult
--- NOTE | 2020-08-25 11:42 | NUR ---
Patient tolerated HD tx with 4L fluid removal. Next planned HD tx tomorrow, 08/26/20 @ 0800.
--- NOTE | 2020-08-25 12:10 | NUR ---
continues to c/o pain to right knee, medicated with tylenol 500mg, transferred into and returned to room from dialysis
[2020-08-25 12:22] VITALS: BP 151/93; PULSE 95; TEMP 97.8
--- NOTE | 2020-08-25 12:57 | NUR ---
assisted him with ordering lunch, occupational therapy in to work with patient,
--- NOTE | 2020-08-25 13:08 | NUR ---
spoke with Dr aGrduno and informed him Jodi, care provider would like for him to call here regarding patient
--- NOTE | 2020-08-25 13:39 | NUR ---
MOIZ contacted the patient's DPOA-HC, Jodi Gilmore (ph#[phone]), to discuss discharge plan. The patient lives alone in [place]. Jodi reports that the patient has some dementia and that she has cameras in the patient's home and that she monitors him /. She reports that the patient is independent with ADLs and that he has a walker. He has home health services from [facility] and Jodi reports that they help him bathe. SW contacted and confirmed services from [facility]. The patient's PCP is Dr. Ángel Manjarrez and he receives his medications from [facility]. The patient's DPOA-HC is in EMR and it designates Jodi. The patient is observation status. MOIZ informed Jodi of this and how that means the patient will likely be ready to d/c tomorrow, unless there is a change in his status. Jodi would like to pursue with the patient returning home with home health from [facility]. PT/OT have been ordered. SW to continue to follow. *Discharge plan: home with home health*
--- NOTE | 2020-08-25 14:30 | NUR ---
ambulated in [place] with physical therapy with use of walker, gait was steady at this time, continues to c/o of some right knee pain
[2020-08-25 16:29] VITALS: BP 150/89; PULSE 87; TEMP 98.4
--- NOTE | 2020-08-25 16:47 | NUR ---
resting in bed, supper ordered
--- NOTE | 2020-08-25 18:23 | NUR ---
had supper and now sitting up on side ofbed
--- NOTE | 2020-08-25 18:54 | NUR ---
bedside shift report given to JYOTSNA Rosado
[2020-08-25 19:45] VITALS: BP 134/81; PULSE 73; TEMP 98.3
[2020-08-26 00:52] VITALS: BP 134/76; PULSE 85; TEMP 98.4
[2020-08-26 04:47] VITALS: BP 134/84; PULSE 83; TEMP 98.1
--- NOTE | 2020-08-26 05:57 | NUR ---
Resting quietly, c/o pain to R knee- medicated with PRN norco, updated on plan of care, denies further needs, fall precautions in use, call aguilar w/i reach.
[2020-08-26 06:55] LABS: BASO % 0.8 % (0.0-2.0); EOS # 0.2 (0.0-0.7); EOS % 4.9 % (0-4.0); GRAN # 3.5 (1.4-6.5); GRAN % 73.9 % (42.2-75.2); LYMPH # 0.5 (1.2-3.4); LYMPH % 9.8 % (20.0-51.0); MEAN CELL VOLUME 97 fl (80.0-100.0); MEAN CORPUSCULAR HEMOGLOBIN 32 pg (27.0-31.0); MEAN CORPUSCULAR HGB CONC 33 g/dl (33.0-37.0); MEAN PLATELET VOLUME 11.7 fl (7.4-10.4); MONO # 0.5 (0.1-0.6); MONO % 10.4 % (1.7-9.3); PLATELET COUNT 144 K/mm3 (130-400); RED BLOOD COUNT 3.16 M/mm3 (4.20-5.60); REDCELL DISTRIBUTION WIDTH-CV 17.1 % (11.5-14.5)
[2020-08-26 06:57] LABS: HEMATOCRIT 30.7 % (42.0-52.0)
[2020-08-26 06:59] LABS: ALBUMIN 3.5 gm/dL (3.5-5.0); CALCIUM 8.6 mg/dL (8.4-10.2); CREATININE, serum 4.23 (0.66-1.25); PHOSPHOROUS 4.5 mg/dL (2.5-4.5); POTASSIUM 4.1 mmol/L (3.4-5.0)
[2020-08-26 07:47] VITALS: BP 122/76; PULSE 71; TEMP 98.1
[2020-08-26] MEDS ORDERED: NORCO 325 MG-51 TAB PO (11:15)
--- NOTE | 2020-08-26 11:33 | NUR ---
The patient is to discharge back home today, 08/26, with home health services for PT/OT/correction from [facility] . SW notified and faxed d/c orders to Maya at [facility]. No additional needs at this time.
--- NOTE | 2020-08-26 12:33 | NUR ---
Patient tolerated HD tx with 3L fluid removal today. Next planned HD tx Sunday[facility]28/20 @ [facility] [place].
--- NOTE | 2020-08-26 16:16 | NUR ---
Scheduled medications given. Shift assessment preformed. Dialysis preformed. 3L of fluid taken off. Patient tolerated well. PRN [place] given for pain in right knee rated a 6/10. Upon revaluation, patient states that his pain was relieved. Patient deemed fit for discharge. Going home on Home Health. IV DC'd catheter intact, no signs of phlebitis. Discharge education/instructions given. Patient denies any futher questions or concerns at this time. Patient escorted from the building by [facility] Staff via wheelchair. VSS. [facility] transport picking up.
== END 2020-08-26 15:45 | disposition home health service (06) ==
LOC: COL.ER 15:13 → MEDICAL 17:28
PROVIDERS: Nurse Practitioner Primary Care; ADMIT Internal Medicine Nephrology
DX: M25.561 Pain in right knee (principal); M25.551 Pain in right hip; R26.89 Other abnormalities of gait and mobility; I13.2 Hypertensive heart and chronic kidney disease with heart failure and with stage 5 chronic kidney disease, or end stage renal disease; I43 Cardiomyopathy in diseases classified elsewhere; N18.6 End stage renal disease; I50.9 Heart failure, unspecified; I50.42 Chronic combined systolic (congestive) and diastolic (congestive) heart failure; I25.2 Old myocardial infarction; D63.1 Anemia in chronic kidney disease; E03.9 Hypothyroidism, unspecified; E78.5 Hyperlipidemia, unspecified; N40.0 Benign prostatic hyperplasia without lower urinary tract symptoms; E87.5 Hyperkalemia; I27.20 Pulmonary hypertension, unspecified; I73.9 Peripheral vascular disease, unspecified; F32.9 Major depressive disorder, single episode, unspecified; F03.90 Unspecified dementia, unspecified severity, without behavioral disturbance, psychotic disturbance, mood disturbance, and anxiety; F41.9 Anxiety disorder, unspecified; F17.210 Nicotine dependence, cigarettes, uncomplicated; Z99.2 Dependence on renal dialysis; Z79.890 Hormone replacement therapy; Z79.02 Long term (current) use of antithrombotics/antiplatelets; Z79.82 Long term (current) use of aspirin; Z79.899 Other long term (current) drug therapy; W19.XXXA Unspecified fall, initial encounter; Y93.9 Activity, unspecified; Y92.9 Unspecified place or not applicable
CPT/HCPCS: G0378; J1644; J2270; J2405; J7030; Q5105

== ENCOUNTER 2020-09-07 22:32 | Emergency (ER) | payer MEDICARE, MEDICAID ==
[~2020-09-07] VITALS: Ht 185.4 cm; Wt 81.8 kg
[2020-09-07 23:01] LABS: BASO % 0.5 % (0.0-2.0); EOS # 0.1 (0.0-0.7); EOS % 2.2 % (0-4.0); GRAN # 4.8 (1.4-6.5); HEMOGLOBIN 10.8 g/dl (13.5-18.0); LYMPH # 0.5 (1.2-3.4); LYMPH % 8.5 % (20.0-51.0); MEAN CELL VOLUME 93 fl (80.0-100.0); MEAN CORPUSCULAR HEMOGLOBIN 30 pg (27.0-31.0); MEAN CORPUSCULAR HGB CONC 33 g/dl (33.0-37.0); MEAN PLATELET VOLUME 10.9 fl (7.4-10.4); MONO # 0.5 (0.1-0.6); MONO % 8.3 % (1.7-9.3); PLATELET COUNT 190 K/mm3 (130-400); RED BLOOD COUNT 3.55 M/mm3 (4.20-5.60)
[2020-09-07 23:06] LABS: HEMATOCRIT 33.1 % (42.0-52.0)
[2020-09-07 23:13] LABS: CALCIUM 8.8 mg/dL (8.4-10.2); CREATININE, serum 2.74 (0.66-1.25); POTASSIUM 3.8 mmol/L (3.4-5.0)
[2020-09-08 04:30] VITALS: BP 138/82; PULSE 89; TEMP 97.8
== END 2020-09-08 04:30 | disposition home or self-care (01) ==
LOC: COL.ER 22:32
PROVIDERS: Emergency Medicine
DX: T43.221A Poisoning by selective serotonin reuptake inhibitors, accidental (unintentional), initial encounter (principal); T46.3X1A Poisoning by coronary vasodilators, accidental (unintentional), initial encounter; R53.83 Other fatigue; R53.1 Weakness; G89.29 Other chronic pain; M25.561 Pain in right knee; I13.2 Hypertensive heart and chronic kidney disease with heart failure and with stage 5 chronic kidney disease, or end stage renal disease; I50.9 Heart failure, unspecified; N18.6 End stage renal disease; J44.9 Chronic obstructive pulmonary disease, unspecified; E78.5 Hyperlipidemia, unspecified; I25.2 Old myocardial infarction; Z99.2 Dependence on renal dialysis; Z79.02 Long term (current) use of antithrombotics/antiplatelets; Z79.899 Other long term (current) drug therapy; Z79.82 Long term (current) use of aspirin

== ENCOUNTER 2020-09-20 13:51 | Emergency (ER) | payer MEDICARE, MEDICAID ==
[~2020-09-20] VITALS: Ht 185.4 cm; Wt 81.8 kg
[2020-09-20 14:14] VITALS: TEMP 98.8
[2020-09-20] MEDS ORDERED: CEPHALEXIN500 M1 PO (14:42)
[2020-09-20 16:03] VITALS: BP 130/77; PULSE 90
== END 2020-09-20 16:18 | disposition home or self-care (01) ==
LOC: COL.ER 13:51
DX: T50.901A Poisoning by unspecified drugs, medicaments and biological substances, accidental (unintentional), initial encounter (principal); I25.10 Atherosclerotic heart disease of native coronary artery without angina pectoris; N18.9 Chronic kidney disease, unspecified; I50.9 Heart failure, unspecified; Z79.82 Long term (current) use of aspirin; Z79.02 Long term (current) use of antithrombotics/antiplatelets

== ENCOUNTER 2020-10-06 17:42 | Emergency (ER) | payer MEDICARE, MEDICAID ==
[~2020-10-06] VITALS: Ht 193 cm; Wt 81.8 kg
[~2020-10-06 17:42] MED LIST changes: +CEPHALEXIN500 M1 PO
[2020-10-06 18:27] VITALS: TEMP 98.7
[2020-10-06 19:18] LABS: BASO # 0.1 (0.0-0.2); BASO % 0.6 % (0.0-2.0); EOS # 0.2 (0.0-0.7); EOS % 2.7 % (0-4.0); GRAN # 6.8 (1.4-6.5); GRAN % 83.1 % (42.2-75.2); LYMPH # 0.3 (1.2-3.4); LYMPH % 3.8 % (20.0-51.0); MEAN CELL VOLUME 97 fl (80.0-100.0); MEAN CORPUSCULAR HGB CONC 31 g/dl (33.0-37.0); MONO # 0.8 (0.1-0.6); MONO % 9.4 % (1.7-9.3); PLATELET COUNT 250 K/mm3 (130-400); RED BLOOD COUNT 2.68 M/mm3 (4.20-5.60); REDCELL DISTRIBUTION WIDTH-CV 18.3 % (11.5-14.5)
[2020-10-06 19:23] LABS: HEMATOCRIT 26.1 % (42.0-52.0); HEMOGLOBIN 8.1 g/dl (13.5-18.0); MEAN CORPUSCULAR HEMOGLOBIN 30 pg (27.0-31.0)
[2020-10-06 19:33] LABS: ALBUMIN 3.7 gm/dL (3.5-5.0); BILIRUBIN,TOTAL 1.3 mg/dL (0.0-1.0); C-REACTIVE PROTEIN 6.7 mg/dL (0.0-0.9); CALCIUM 8.1 mg/dL (8.4-10.2); POTASSIUM 4.5 mmol/L (3.4-5.0); TOTAL PROTEIN 6.9 gm/dL (6.4-8.2)
[2020-10-06] MEDS ORDERED: DOXYCYCLINE 10100 MG PO (20:11)
[2020-10-06 21:51] VITALS: BP 130/84; PULSE 86
== END 2020-10-06 22:10 | disposition home or self-care (01) ==
LOC: COL.ER 17:42
PROVIDERS: Physician Assistant
DX: L03.115 Cellulitis of right lower limb (principal); I12.0 Hypertensive chronic kidney disease with stage 5 chronic kidney disease or end stage renal disease; N18.6 End stage renal disease; Z99.2 Dependence on renal dialysis; F03.90 Unspecified dementia, unspecified severity, without behavioral disturbance, psychotic disturbance, mood disturbance, and anxiety; I25.10 Atherosclerotic heart disease of native coronary artery without angina pectoris; Z79.02 Long term (current) use of antithrombotics/antiplatelets; Z79.899 Other long term (current) drug therapy
CPT/HCPCS: J0696; J7030

== ENCOUNTER → 2021-08-19 | Outpatient (CLI) | payer MEDICARE, MEDICAID ==
[~2021-08-19] MED LIST changes: +DOXYCYCLINE 10100 MG PO
[2021-08-19 21:31] LABS: BASO # 0.1 K/mm3 (0.0-0.2); BASO % 0.7 % (0.0-2.0); EOS # 0.3 K/mm3 (0.0-0.7); EOS % 3.4 % (0.0-4.0); GRAN % 81.7 % (42.2-75.2); LYMPH # 0.3 K/mm3 (1.2-3.4); LYMPH % 3.9 % (20.0-51.0); MEAN CELL VOLUME 94 fl (80.0-100.0); MEAN CORPUSCULAR HEMOGLOBIN 31 pg (27-31); MEAN CORPUSCULAR HGB CONC 33 g/dl (33.0-37.0); MEAN PLATELET VOLUME 9.9 fl (7.4-10.4); MONO # 0.7 K/mm3 (0.1-0.6); MONO % 9.6 % (1.7-9.3); PLATELET COUNT 223 K/mm3 (130-400); RED BLOOD COUNT 3.22 M/mm3 (4.20-5.60); REDCELL DISTRIBUTION WIDTH-CV 16.2 % (11.5-14.5)
[2021-08-19 21:33] LABS: HEMATOCRIT 30.2 % (42.0-52.0)
[2021-08-19 21:57] LABS: ALBUMIN 3.4 gm/dL (3.4-4.8); BILIRUBIN,TOTAL 0.6 mg/dL (0.2-1.2); CALCIUM 8.2 mg/dL (8.4-10.2); CREATININE, serum 4.89 mg/dL (0.72-1.25); POTASSIUM 3.8 mmol/L (3.5-4.5); TOTAL PROTEIN 7.4 gm/dL (6.2-8.1)
== END ==
LOC: COL.LAB 21:14
PROVIDERS: Internal Medicine
DX: E03.9 Hypothyroidism, unspecified (principal); I50.23 Acute on chronic systolic (congestive) heart failure; I25.10 Atherosclerotic heart disease of native coronary artery without angina pectoris; F41.8 Other specified anxiety disorders; J43.9 Emphysema, unspecified; F03.90 Unspecified dementia, unspecified severity, without behavioral disturbance, psychotic disturbance, mood disturbance, and anxiety; K90.9 Intestinal malabsorption, unspecified; G47.01 Insomnia due to medical condition; I10 Essential (primary) hypertension

== ENCOUNTER 2022-04-20 23:57 | Inpatient (IN) | payer MEDICARE, MEDICAID ==
[~2022-04-20] VITALS: Ht 185.4 cm; Wt 76.1 kg
[2022-04-21] VITALS (9 sets, daily range): BP systolic 101–156; BP diastolic 44–96; PULSE 59–97; TEMP 97.4–99.5
[2022-04-21 00:19] LABS: BASO # 0.1 K/mm3 (0.0-0.2); BASO % 0.6 % (0.0-2.0); EOS # 0.3 K/mm3 (0.0-0.7); EOS % 2.8 % (0.0-4.0); GRAN # 9.3 K/mm3 (1.4-6.5); GRAN % 82.6 % (42.2-75.2); HEMATOCRIT 38.4 % (42.0-52.0); HEMOGLOBIN 13.1 g/dl (13.5-18.0); LYMPH # 0.5 K/mm3 (1.2-3.4); LYMPH % 4.6 % (20.0-51.0); MEAN CELL VOLUME 97 fl (80.0-100.0); MEAN CORPUSCULAR HEMOGLOBIN 33 pg (27-31); MEAN CORPUSCULAR HGB CONC 34 g/dl (33.0-37.0); MEAN PLATELET VOLUME 10.6 fl (7.4-10.4); PLATELET COUNT 180 K/mm3 (130-400); RED BLOOD COUNT 3.98 M/mm3 (4.20-5.60); REDCELL DISTRIBUTION WIDTH-CV 14.9 % (11.5-14.5)
[2022-04-21 00:24] LABS: ARTERIAL BLD GAS O2 SATURATION 95.6 % (92-100); ARTERIAL BLD GAS TCO2 CT 22.8; ARTERIAL BLOOD GAS HCO3 21.7 meq/L (22-26); ARTERIAL BLOOD GAS PCO2 37.4 mmHg (35-45); ARTERIAL BLOOD GAS PO2 89.9 mmHg (80-100); ARTERIAL BLOOD GAS pH 7.38 (7.35-7.45)
[2022-04-21 00:37] LABS: BILIRUBIN,TOTAL 0.7 mg/dL (0.2-1.2); C-REACTIVE PROTEIN 0.92 mg/dL (0.00-0.50); CALCIUM 8.7 mg/dL (8.4-10.2); CREATININE, serum 6.5 mg/dL (0.72-1.25); POTASSIUM 4.3 mmol/L (3.5-4.5); TOTAL PROTEIN 7.9 gm/dL (6.2-8.1)
[2022-04-21 00:45] LABS: TROPONIN-I 0.358 ng/mL (0.00-0.033)
--- NOTE | 2022-04-21 02:37 | NUR ---
0201- Pt arrived onto unit from ED. Pt walked from wheelchair to Medical bed. Pt is alert but confused. When asked orientation questions pt is able to tell RN he is in the hospital, but pt is unable to state what year or month it is. Pt cannot tell RN why he is at the hospital or how he got here. Pt states he has a drivers license but does not have a car. Per ED report ED RN stated that pt mentioned that he drove himself to the hospital. Pt cannot recall when he goes to dialysis or if he went this week. Pt can be redirected but forgets limitations within 5 minutes. Pt mentions he lives alone at home, has no family that lives near, but has a "friend" named Jodi. Per ED RN Jodi is pts DPOA. Pt placed in a fall risk gown, socks, and fall risk wristband placed as well as a limb restriction band. Pt bed is in the lowest position and bed alarm activated. Pt room is in front of nurses station with door left open. Pt given call light and is resting comfortably in bed.
--- NOTE | 2022-04-21 09:55 | NUR ---
RE:CHF diagnosis/increased troponin - pt has reported dementia, not an appropriate canidate for outpatient Cardiac rehab at this time. Please contact staff if status changed or family needs continued education.
--- NOTE | 2022-04-21 15:15 | NUR ---
Research Hydrologist contacted patient's DPOA-HC, Jodi (ph#[phone]) to discuss discharge planning as patient is not oriented at this time. Patient sees Dr. Manjarrez for primary care and obtains medications from the [facility] or [place], where Jodi lives. Jodi picks up patient's medications for him and provides him any assistance he needs. Jodi stated patient has everything at home that he needs and plans to return home at time of discharge. Patient has DPOA-HC in EMR designating Jodi Gilmore as primary agent and Elkin Roebrts as secondary. Jodi plans to have patient stay with her for a short time after discharge. Jodi requests SW assist in accessing patient's meal benefit through his insurance. Jodi advised that patient is eligible for meal assistance through his insurance. Patient's director of casework services through [employer] is Damien Zhou (ph#[phone]). SW contacted Damien and left a message. Discharge Plan: Home with DPOA-HC
--- NOTE | 2022-04-21 15:19 | NUR ---
After speaking with RENZO, med rec completed. Left message for Laury to alert her of this.
[2022-04-21] MEDS ORDERED: PLAVIX 75MG TAB75 MG PO (16:07)
[2022-04-22 03:22] VITALS: BP 135/87; PULSE 79; TEMP 97.7
[2022-04-22 07:30] LABS: ALBUMIN 3.6 gm/dL (3.4-4.8); BILIRUBIN,TOTAL 0.7 mg/dL (0.2-1.2); CALCIUM 8.7 mg/dL (8.4-10.2); CREATININE, serum 5.79 mg/dL (0.72-1.25); POTASSIUM 3.8 mmol/L (3.5-4.5)
[2022-04-22 07:36] VITALS: BP 128/76; PULSE 76; TEMP 97.7
--- NOTE | 2022-04-22 11:11 | NUR ---
stopped by but nothing needed at this time.
[2022-04-22 11:12] VITALS: BP 126/81; PULSE 82; TEMP 97.8
--- NOTE | 2022-04-24 16:11 | NUR ---
Export Packer was contacted by Damien, Supervisor Phosphoric Acid through [employer]. SW notified Damien of patient admission and diagnosis. Damien advised patient does have a value added benefit for a few days of meals and that she can reach out to the DPOA-HC to discuss this. Damein did advise that the DPOA-HC is paid for 40 hours of caregiving per week.
== END 2022-04-22 15:44 | disposition home or self-care (01) | DRG 640 ==
LOC: COL.ER 23:57 → MEDICAL 04-21 01:05
PROVIDERS: Emergency Medicine; Registered Nurse; ADMIT Internal Medicine Nephrology
PROC: 5A1D70Z Performance of Urinary Filtration, Intermittent, Less than 6 Hours Per Day (ICD-10-PCS; principal; 2022-04-21)
DX: E87.70 Fluid overload, unspecified (principal); J96.01 Acute respiratory failure with hypoxia; N18.6 End stage renal disease; I13.2 Hypertensive heart and chronic kidney disease with heart failure and with stage 5 chronic kidney disease, or end stage renal disease; I50.22 Chronic systolic (congestive) heart failure; I42.8 Other cardiomyopathies; Z20.822 Contact with and (suspected) exposure to COVID-19; F03.90 Unspecified dementia, unspecified severity, without behavioral disturbance, psychotic disturbance, mood disturbance, and anxiety; F41.9 Anxiety disorder, unspecified; N40.0 Benign prostatic hyperplasia without lower urinary tract symptoms; D64.9 Anemia, unspecified; G89.29 Other chronic pain; M54.9 Dorsalgia, unspecified; J44.9 Chronic obstructive pulmonary disease, unspecified; F32.A Depression, unspecified; K21.9 Gastro-esophageal reflux disease without esophagitis; E03.9 Hypothyroidism, unspecified; I27.20 Pulmonary hypertension, unspecified; I73.9 Peripheral vascular disease, unspecified; F17.210 Nicotine dependence, cigarettes, uncomplicated; E78.5 Hyperlipidemia, unspecified; Z99.2 Dependence on renal dialysis; Z79.82 Long term (current) use of aspirin; Z79.890 Hormone replacement therapy; Z23 Encounter for immunization
CPT/HCPCS: J0610; J1940; Q5105

== ENCOUNTER 2022-04-26 16:34 | Inpatient (IN) | payer MEDICARE, MEDICAID ==
[~2022-04-26] VITALS: Ht 185.4 cm; Wt 75.2 kg
[2022-04-26 16:49] LABS: BASO % 0.9 % (0.0-2.0); EOS # 0.2 K/mm3 (0.0-0.7); EOS % 3.7 % (0.0-4.0); GRAN # 3.3 K/mm3 (1.4-6.5); GRAN % 75.6 % (42.2-75.2); HEMATOCRIT 41.6 % (42.0-52.0); HEMOGLOBIN 14.3 g/dl (13.5-18.0); LYMPH # 0.4 K/mm3 (1.2-3.4); LYMPH % 8.3 % (20.0-51.0); MEAN CELL VOLUME 95 fl (80.0-100.0); MEAN CORPUSCULAR HEMOGLOBIN 33 pg (27-31); MEAN CORPUSCULAR HGB CONC 34 g/dl (33.0-37.0); MEAN PLATELET VOLUME 10.3 fl (7.4-10.4); MONO # 0.5 K/mm3 (0.1-0.6); MONO % 11.3 % (1.7-9.3); PLATELET COUNT 190 K/mm3 (130-400); RED BLOOD COUNT 4.38 M/mm3 (4.20-5.60); REDCELL DISTRIBUTION WIDTH-CV 14.4 % (11.5-14.5)
[2022-04-26 17:05] LABS: ALBUMIN 4.6 gm/dL (3.4-4.8); BILIRUBIN,TOTAL 1.3 mg/dL (0.2-1.2); CALCIUM 9.8 mg/dL (8.4-10.2); CREATININE, serum 4.24 mg/dL (0.72-1.25); POTASSIUM 3.7 mmol/L (3.5-4.5); TOTAL PROTEIN 9.3 gm/dL (6.2-8.1)
[2022-04-26 17:13] LABS: TROPONIN-I 0.574 ng/mL (0.00-0.033)
[2022-04-26 18:07] LABS: PROTHROMBIN TIME 11.6 SECONDS (9.7-12.8)
[2022-04-26 18:10] LABS: PARTIAL THROMBOPLASTIN TIME 38.7 SECONDS (26.0-37.0)
[2022-04-27] VITALS (573 sets, daily range): BP systolic 98–160; BP diastolic 57–99; PULSE 78–93; TEMP 98–98.6; O2SAT 87–100
[2022-04-27] MEDS ORDERED: SYNTHROID0.075 MG/T PO (00:42)
[2022-04-27] MEDS ORDERED: WELLBUTRIN XL150 MG PO (00:43)
[2022-04-27] MEDS ORDERED: PHOS LO PO (00:44)
[2022-04-27] MEDS ORDERED: REMERON 15M15 MG/TA1 PO (00:45)
--- NOTE | 2022-04-27 05:11 | NUR ---
Patient arrived to medical unit from ER at approximately 0030. Alert with confusion. Med rec completed based off of recently filled medications as well as list from dialysis. Patient is not able to state what medications he takes or the last time that they were taken. Denies having pain and discomfort, but did have pain to right leg in ER and was given pain medication. Denies having any chest pain or discomfort. Denies having SOB and dyspnea. Had been on oxygen at 2 L/min via NC for comfort, but patient stated he did not need it and was put back on room air. Continues to deny SOB and dyspnea. LS CTA. HRR. Telemetry in place, normal sinus. BSAx4. No edema. AV fistula to LUE. Restriction signs put in place. Patient has 2 IV sites to right forearm. Has Heparin drip running per ordes. HepXa was goal at the first check around 0100. Recheck scheduled for 0700. Patient voices no questions, needs or concerns at this time. In bed with call light within reach. High fall risk precautions in place. Patient kept NPO since arriving to medical floor.
--- NOTE | 2022-04-27 08:17 | NUR ---
0700 Report received from stove fitter nurse Ana GOYAL.
--- NOTE | 2022-04-27 08:18 | NUR ---
0733 Head to toe assessment completed for this patient (see shift note). Patient is drowsy and difficult to wake at this time. Patient resting in bed at this time. Patient offered breakfast and patient responded "not really". VS WNL, BP slightly hypertensive. Primary nurse alerted. Patient unable to tell this nurse his name, the date, or where he is. Patient speech is slurred and difficult to understand. Patient resting in bed at this time. Call light in reach. No needs voiced at this time.
--- NOTE | 2022-04-27 08:22 | NUR ---
0748 Head to toe assessment completed (see shift note). Patient is alert and oriented to self and town, patient confused on why he is in the hospital, what year it is, and what is going on. Patient questioned this nurse on what dialysis is but has been dialysis patient for quite some time. Patient is not drowsy and was able to have sensible conversation with this nurse. Patient is SBA and walked for this nurse from bed to wheelchair. Patient laserist is strong. Patient has peripheral IV to right forearm and fistula in left forearm. Patient was wheeled to dialysis at 0810.
--- NOTE | 2022-04-27 09:01 | NUR ---
The patient has a history of dementia. MOIZ contacted the patient's DPOA-HC, Jodi Gilmore (ph#[phone]), to discuss discharge plan. The patient recently discharged from the hospital on 04/22 and returned home with support from Jodi. Jodi shares that things were going fine at home. Jodi's responses were short during this intake. The patient developed shortness of breath at the end of his dialysis session and was sent to the hospital. Jodi states that he does not need any assistance with ADLs and does not have any DME. She is his caregiver. The patient's PCP is Dr. Ángel Manjarrez and he receives his medications from [facility]. The patient's DPOA-HC is in EMR and it designates Jodi. During his last hospital stay, Jodi inquired about meals through his insurance and this was intiated through the [facility] care transition mgr, Damien. MOIZ addressed this. Jodi states that she did talk to Damien, but Damien informed her that the patient has to be in the hospital for 7 days to to qualify. Jodi states that the plan is for the patient to return back home upon discharge. MOIZ contacted Damien, t Farm Operations Manager, to follow up about the meals. Damien confirms that after doing some more checking the patient does not qualify. She states that the patient has to be in the hospital 7 consecutive days, to be able to get 7 days of meals at home upon discharge. *Discharge plan: home with DPOA-HC support*
--- NOTE | 2022-04-27 11:20 | NUR ---
PT TRANSFERED FROM MEDICAL FOR HYPOTENTION. PT IS AWAKE BUT CONFUSED. ABLE TO STATE NAME AND BIRTHDAY. PT'S VSS. PT ON RA SATING 95%. PT NPO AT THIS TIME AND EDUCATED. PT ORIENTED TO ROOM AND FLOOR. PT INSTRUCTED TO CALL WITH ALL NEEDS AND NOT TO GET OUT OF BED WITHOUT ASSISTNACE. CALL LIGHT GIVEN. BEDALARM ACTIVE.
--- NOTE | 2022-04-27 11:43 | NUR ---
SPOKE WITH NATALYA DURON TO CLARIFY PLAN OF CARE. STATES WILL ORDER CHEST CT TO RULE OUT PE, THEN FOLLOW UP WITH CARDIOLOGY FOR RECCOMENDATIONS. PT UPDATED ON PLAN. CT CALLED AND NOTIFIED. STATED PT MUST HAVE HD WITHIN 24 POST CONTRAST. NATALYA DURON NOTIFIED AND STATES WILL PLAN HD [address] NOTIFIED.
--- NOTE | 2022-04-27 12:00 | NUR ---
Pt down to CT.
--- NOTE | 2022-04-27 14:15 | NUR ---
Patient resting in bed; alert and partially oriented. Cooperative with cares but needs frequent reminders for ADL's. Call light left within reach and bed alarm activated.
--- NOTE | 2022-04-27 15:20 | NUR ---
Left unit for a cardiac cath. Alert and in no distress upon transfer.
--- NOTE | 2022-04-27 15:57 | NUR ---
SEE MERGE FOR ALL MEDICATION ADMINISTRATION TIMES/DOSAGES AND INTRA/POST PROCEDURE SEDATION ASSESSMENTS.
--- NOTE | 2022-04-27 16:50 | NUR ---
Arrived from the cath lab radiological technologist; alert and oriented per usual self upon arrival. Denies any pain. Reports slight shortness of breath but states this is due to his "stuffy nose". Groin site soft and non-tender to touch; pedal pulses +2. Call light left within reach and bed alarm activated.
--- NOTE | 2022-04-27 19:55 | NUR ---
RECEIVED REPORT FROM DAY SHIFT NURSE. PT IS LYING FLAT IN BED AND NEEDS CONSTANT REMINDER TO LIE FLAT. PT'S GROIN SITE IS INTACT AND HAS NO HEMATOMAS PRESENT AT THIS TIME. PT'S VITALS ARE STABLE AT THIS TIME. PT GOT FOOD AND WAS ABLE TO EAT AND DRINK WITHOUT COUGHING OR DIFFICULTLY SWALLOWING. PT LEFT ARM IS RESTRICTED DUE TO THE FISTULA. PT IS IN [place] WITH CALL LIGHT WITHIN REACH.
--- NOTE | 2022-04-27 22:45 | NUR ---
PT'S FLAT TIME WAS DONE AT 2100.
[2022-04-28] VITALS (511 sets, daily range): BP systolic 81–135; BP diastolic 62–85; PULSE 78–93; TEMP 97.4–98.6; O2SAT 85–99
[2022-04-28 05:36] LABS: BASO # 0.1 K/mm3 (0.0-0.2); BASO % 0.6 % (0.0-2.0); EOS # 0.3 K/mm3 (0.0-0.7); EOS % 3.8 % (0.0-4.0); GRAN # 6.1 K/mm3 (1.4-6.5); GRAN % 77.6 % (42.2-75.2); HEMATOCRIT 37.8 % (42.0-52.0); LYMPH # 0.5 K/mm3 (1.2-3.4); LYMPH % 5.7 % (20.0-51.0); MEAN CELL VOLUME 95 fl (80.0-100.0); MEAN CORPUSCULAR HEMOGLOBIN 33 pg (27-31); MEAN CORPUSCULAR HGB CONC 34 g/dl (33.0-37.0); MEAN PLATELET VOLUME 10.4 fl (7.4-10.4); MONO # 0.9 K/mm3 (0.1-0.6); PLATELET COUNT 157 K/mm3 (130-400); RED BLOOD COUNT 3.99 M/mm3 (4.20-5.60); REDCELL DISTRIBUTION WIDTH-CV 14.6 % (11.5-14.5)
[2022-04-28 05:51] LABS: ALBUMIN 3.8 gm/dL (3.4-4.8); CALCIUM 8.6 mg/dL (8.4-10.2); CREATININE, serum 7.43 mg/dL (0.72-1.25); PHOSPHOROUS 7.7 mg/dL (2.3-4.7); POTASSIUM 4.3 mmol/L (3.5-4.5)
--- NOTE | 2022-04-28 06:51 | NUR ---
PT HAS HAD AN UNEVENTFUL NIGHT. PT'S VITALS WERE STABLE THROUGHOUT THE NIGHT. PT IS ON RA. PT'S LEFT GROIN SITE IS DRY AND INTACT AND FEET AND RADIAL PULSES ARE PRESENT. WILL GIVE REPORT TO DAY SHIFT NURSE.
--- NOTE | 2022-04-28 07:45 | NUR ---
Patient awake and eating breakfast. Groin site soft and non-tender with no signs of complications. Patient states he is feeling "good" and is ready to go home. Will continue to monitor.
--- NOTE | 2022-04-28 09:55 | NUR ---
Transported upstairs via wheelchair. Alert and oriented per baseline and in no distress upon transfer. Met receiving RN in room.
--- NOTE | 2022-04-28 09:56 | NUR ---
Reviewed risk factors for heart disease. Covered applicable modifiable risk factors influding: tobacco cessation ([employer] ref), HTN, hyperlipidemia, diabetes, overweight/obesity, sedentary lifestyle and stress/depression. Reviewed education for chronic heart failure. Patient was given [facility] educational booklet and encouraged to review. Patient was being transferred to [facility] at this time. Patient's EF is 10% which does qualify for Cardiac Rehab. Patient also recently had a stent placed. Patient verbalized understanding of the above. RN stated that Jodi Gilmore would be a good contact to assist the patient with getting his care plan in place after discharge. Patient agreed to a follow up phone call in one week to set up his initial visit with Cardiac Rehab. Staff will follow up next week. Thank you cardiology for the referral.
--- NOTE | 2022-04-28 10:00 | NUR ---
arrived on unit per WC from ICU, awake and alert, full assessment completed, see interventions for further info, bed alarm on, denies needs at this time
--- NOTE | 2022-04-28 11:06 | NUR ---
appears to be sleeping, in bed with eyes closed, resp quiet and easy
--- NOTE | 2022-04-28 11:40 | NUR ---
to dialysis per WC
--- NOTE | 2022-04-28 14:25 | NUR ---
remains in dialysis
--- NOTE | 2022-04-28 15:53 | NUR ---
returned from dialysis per Zaira ROWLEY supervisor rolling room notified of order for life vest and that rep had been notified, no further action needed at this time by this nurse
--- NOTE | 2022-04-28 18:00 | NUR ---
had supper and tolerated well, now resting in bed, Dr Garduno was notified of BP and orders received
--- NOTE | 2022-04-28 18:54 | NUR ---
bedside shift report given to JYOTSNA Jessica
--- NOTE | 2022-04-28 20:00 | NUR ---
PT IN BED, DROWSY. TUT=[id number], HS MEDS GIVEN INCLUDING ISORDIL. PT HAS INT TO RFA X2, BOTH FLUSH WELL. HAS AV FISTULA TO LFA. LT GROIN HEART CATH SITE WITH OCCLUSIVE DRSG D/I. PT DENIES CHEST PAIN OR ANY CONCERNS AT THIS TIME.
[2022-04-29 01:24] VITALS: BP 118/70; PULSE 85; TEMP 98.1
[2022-04-29 04:15] VITALS: BP 130/69; PULSE 87; TEMP 98.1
--- NOTE | 2022-04-29 05:36 | NUR ---
PT TAKES SCHEDULED AM MEDS WITHOUT PROBLEM. NO CONCERNS VOICED THIS AM. REMAINS ON 1500CC FR.
[2022-04-29 06:51] LABS: BASO # 0.1 K/mm3 (0.0-0.2); BASO % 0.8 % (0.0-2.0); EOS # 0.4 K/mm3 (0.0-0.7); EOS % 6.5 % (0.0-4.0); GRAN # 4.2 K/mm3 (1.4-6.5); GRAN % 69.1 % (42.2-75.2); HEMOGLOBIN 11.6 g/dl (13.5-18.0); LYMPH # 0.5 K/mm3 (1.2-3.4); LYMPH % 7.8 % (20.0-51.0); MEAN CELL VOLUME 98 fl (80.0-100.0); MEAN CORPUSCULAR HEMOGLOBIN 33 pg (27-31); MEAN CORPUSCULAR HGB CONC 33 g/dl (33.0-37.0); MEAN PLATELET VOLUME 10.8 fl (7.4-10.4); MONO % 15.5 % (1.7-9.3); PLATELET COUNT 128 K/mm3 (130-400); RED BLOOD COUNT 3.57 M/mm3 (4.20-5.60); REDCELL DISTRIBUTION WIDTH-CV 14.5 % (11.5-14.5)
[2022-04-29 06:55] LABS: HEMATOCRIT 35.1 % (42.0-52.0)
[2022-04-29 07:03] LABS: ALBUMIN 3.6 gm/dL (3.4-4.8); CALCIUM 8.8 mg/dL (8.4-10.2); CREATININE, serum 6.22 mg/dL (0.72-1.25); PHOSPHOROUS 5.7 mg/dL (2.3-4.7); POTASSIUM 4.5 mmol/L (3.5-4.5)
--- NOTE | 2022-04-29 07:11 | NUR ---
Shift report received from claims investigator RN.
[2022-04-29 07:38] VITALS: BP 138/83; PULSE 76; TEMP 98.2
--- NOTE | 2022-04-29 07:49 | NUR ---
Pt resting supine in bed watching television. Sp02 90% on room air. O2 2L/nc applied. Rt notified. Pt denies chest pain, shortness of breath, difficulty breathing. Denies general pain/discomfort at this time. He denies other needs. Call light is in his reach.
--- NOTE | 2022-04-29 10:28 | NUR ---
Call received from [facility]. He will be here around lunch time today to see patient prior to discharge.
[2022-04-29] MEDS ORDERED: ASPIRIN E.C. 8181 MG PO (11:55)
--- NOTE | 2022-04-29 12:00 | NUR ---
Life vest rep here. Life vest placed on pt by rep. Teaching for life vest provided by the rep.
[2022-04-29 12:07] VITALS: BP 121/1; PULSE 75; TEMP 97.4
--- NOTE | 2022-04-29 15:47 | NUR ---
Pt sitting up in the recliner waiting for his DPOA to arrive to take him home. He denies pain/discomfort. Denies chest pain, shortness of breath. Life vest is on. Pt denies other needs. Call light is in his reach.
--- NOTE | 2022-04-29 17:22 | NUR ---
DC Summary reviewed with the pt and his DPOA, Jodi. Reviewed homem medications and life vest teaching. They had no further questions. Pt escorted off unit by wheelchair to vehicle and seatbelted for the ride home.
== END 2022-04-29 17:24 | disposition home or self-care (01) | DRG 248 ==
LOC: COL.ER 16:34 → MEDICAL 19:46 → ICU 04-27 10:28 → SURG 04-28 10:00
PROVIDERS: Emergency Medicine; Registered Nurse; ADMIT Internal Medicine Nephrology
PROC: 02703DZ Dilation of Coronary Artery, One Artery with Intraluminal Device, Percutaneous Approach (ICD-10-PCS; principal; 2022-04-27)
PROC: 02C03ZZ Extirpation of Matter from Coronary Artery, One Artery, Percutaneous Approach (ICD-10-PCS; 2022-04-27)
PROC: 4A023N7 Measurement of Cardiac Sampling and Pressure, Left Heart, Percutaneous Approach (ICD-10-PCS; 2022-04-27)
PROC: B2111ZZ Fluoroscopy of Multiple Coronary Arteries using Low Osmolar Contrast (ICD-10-PCS; 2022-04-27)
PROC: 5A1D70Z Performance of Urinary Filtration, Intermittent, Less than 6 Hours Per Day (ICD-10-PCS; 2022-04-27)
DX: I13.2 Hypertensive heart and chronic kidney disease with heart failure and with stage 5 chronic kidney disease, or end stage renal disease (principal); J96.01 Acute respiratory failure with hypoxia; N18.6 End stage renal disease; E87.70 Fluid overload, unspecified; I42.8 Other cardiomyopathies; I50.42 Chronic combined systolic (congestive) and diastolic (congestive) heart failure; I42.0 Dilated cardiomyopathy; F41.9 Anxiety disorder, unspecified; N40.0 Benign prostatic hyperplasia without lower urinary tract symptoms; G89.29 Other chronic pain; M54.9 Dorsalgia, unspecified; D64.9 Anemia, unspecified; E78.5 Hyperlipidemia, unspecified; E03.9 Hypothyroidism, unspecified; F03.90 Unspecified dementia, unspecified severity, without behavioral disturbance, psychotic disturbance, mood disturbance, and anxiety; I27.20 Pulmonary hypertension, unspecified; I73.9 Peripheral vascular disease, unspecified; Z20.822 Contact with and (suspected) exposure to COVID-19; J44.9 Chronic obstructive pulmonary disease, unspecified; F32.A Depression, unspecified; K21.9 Gastro-esophageal reflux disease without esophagitis; M79.661 Pain in right lower leg; I08.3 Combined rheumatic disorders of mitral, aortic and tricuspid valves; F17.210 Nicotine dependence, cigarettes, uncomplicated; I45.10 Unspecified right bundle-branch block; D72.819 Decreased white blood cell count, unspecified; I25.10 Atherosclerotic heart disease of native coronary artery without angina pectoris; Z99.2 Dependence on renal dialysis; Z79.890 Hormone replacement therapy
CPT/HCPCS: C1725; C1757; C1760; C1769; C1876; C1887; C1894; G0378; J0583; J1644; J2250; J3010; L1830; Q9967

== ENCOUNTER 2022-07-20 22:57 | Emergency (ER) | payer MEDICARE, MEDICAID ==
[~2022-07-20] VITALS: Ht 185.4 cm; Wt 81.8 kg
[~2022-07-20 22:57] MED LIST changes: +PHOS LO PO; +REMERON 15M15 MG/TA1 PO; +SYNTHROID0.075 MG/T PO; +WELLBUTRIN XL150 MG PO
[2022-07-20 23:03] VITALS: TEMP 97.7
[2022-07-20 23:25] LABS: BASO # 0.1 K/mm3 (0.0-0.2); BASO % 0.6 % (0.0-2.0); EOS # 0.6 K/mm3 (0.0-0.7); GRAN # 6.3 K/mm3 (1.4-6.5); GRAN % 74.2 % (42.2-75.2); HEMOGLOBIN 11.3 g/dl (13.5-18.0); LYMPH # 0.6 K/mm3 (1.2-3.4); LYMPH % 7.5 % (20.0-51.0); MEAN CELL VOLUME 99 fl (80.0-100.0); MEAN CORPUSCULAR HEMOGLOBIN 33 pg (27-31); MEAN CORPUSCULAR HGB CONC 33 g/dl (33.0-37.0); MONO # 0.9 K/mm3 (0.1-0.6); MONO % 10.5 % (1.7-9.3); PLATELET COUNT 179 K/mm3 (130-400); RED BLOOD COUNT 3.45 M/mm3 (4.20-5.60); REDCELL DISTRIBUTION WIDTH-CV 14.5 % (11.5-14.5)
[2022-07-20 23:28] LABS: HEMATOCRIT 34.2 % (42.0-52.0)
[2022-07-20 23:34] LABS: PARTIAL THROMBOPLASTIN TIME 33.7 SECONDS (26.0-37.0)
[2022-07-20 23:40] LABS: ALANINE AMINOTRANSFERASE 19 U/L (0-55); ALKALINE PHOSPHATASE 65 U/L (40-150); ANION GAP 20 mmol/L (7-16); AST,SGOT 24 U/L (5-34); BILIRUBIN,TOTAL 0.5 mg/dL (0.2-1.2); BLOOD UREA NITROGEN 79 mg/dL (8-26); C-REACTIVE PROTEIN 2.99 mg/dL (0.00-0.50); CALCIUM 9.5 mg/dL (8.4-10.2); CARBON DIOXIDE 22 mmol/L (23-31); CHLORIDE 95 mmol/L (98-107); CREATININE, serum 9.34 mg/dL (0.72-1.25); GLUCOSE 111 mg/dL (70-99); POTASSIUM 5.4 mmol/L (3.5-4.5); SODIUM 137 mmol/L (136-145)
[2022-07-20 23:42] LABS: ALCOHOL(ethanol),MEDICAL < 10 mg/dL (0-10)
[2022-07-20 23:48] LABS: TROPONIN-I 0.191 ng/mL (0.00-0.033)
[2022-07-21] MEDS ORDERED: PHOS LO (01:29)
[2022-07-21] MEDS ORDERED: REMERON 15M15 MG/TA1 PO (01:29)
[2022-07-21] MEDS ORDERED: KLONOPIN2 MG PO (01:30)
[2022-07-21] MEDS ORDERED: LASIX 80MG TABL80 MG PO (01:30)
[2022-07-21] MEDS ORDERED: WELLBUTRIN SR150 M1 PO (01:31)
[2022-07-21] MEDS ORDERED: PHOSLO667 MG PO (01:32)
[2022-07-21] MEDS ORDERED: ISORDIL 20MG20 M1 PO (01:34)
[2022-07-21] MEDS ORDERED: COREG12.5 MG PO (01:36)
[2022-07-21] MEDS ORDERED: APRESOLINE 25MG25 MG PO (01:36)
[2022-07-21] MEDS ORDERED: FLOMAX 0.40.4 MG/CAP PO (01:37)
[2022-07-21] MEDS ORDERED: LIPITOR 40MG TA40 MG PO (01:37)
[2022-07-21] MEDS ORDERED: PLAVIX 75MG TAB75 MG PO (01:37)
[2022-07-21] MEDS ORDERED: PROTONIX 40MG T40 MG PO (01:38)
[2022-07-21] MEDS ORDERED: SYNTHROID0.075 MG/T PO (01:38)
[2022-07-21] MEDS ORDERED: ZOLOFT 100MG100 MG PO (01:39)
[2022-07-21 02:45] VITALS: BP 158/91; PULSE 79
== END 2022-07-21 03:14 | disposition short-term general hospital (02) ==
LOC: COL.ER 22:57 → MEDICAL 07-21 00:27 → EDBEDREQ 07-21 00:39
PROVIDERS: Emergency Medicine
DX: I50.9 Heart failure, unspecified (principal); R09.02 Hypoxemia; I24.9 Acute ischemic heart disease, unspecified; N18.6 End stage renal disease; R79.89 Other specified abnormal findings of blood chemistry; F17.210 Nicotine dependence, cigarettes, uncomplicated; Z99.2 Dependence on renal dialysis; Z20.822 Contact with and (suspected) exposure to COVID-19
CPT/HCPCS: J0612; J1644